=== PATIENT | male | born 1930 | race Caucasian/White ===

== ENCOUNTER 2016-08-16 15:02 | Observation (INO) | payer OTHER ==
[2016-08-16 15:13] VITALS: BMI 25.4
--- NOTE | 2016-08-16 15:26 | PDOC ---
History of Present Illness - General History Source: Patient Exam Limitations: No Limitations - History of Present Illness Initial Comments: 08/16/16 15:34 Patient is a 85 year old male with significant past medical history of HTN, TIA , CVA, hypothyroidism, and dementia who presents to the ED with dizziness, diaphoresis and syncopal 2 episodes. Patient had 2 episodes of unresponsiveness where he slumped over both lasting 5-10 minutes per episode. took BP when it happened yesterday his BP was 90/60. After recovery patient was back to baseline. He denies any weakness, incontinence, visual changes, facial droop. In the ED the patient is hemodynamically stable. He denies any recent fall. <Estefani Pal - Last Filed: 08/16/16 16:26> <Roque Prado - Last Filed: 08/16/16 16:46> - General Chief Complaint: CVA/TIA Stated Complaint: DIZZINESS, SWEATING Time Seen by Provider: 08/16/16 15:24 Past History <Estefani Pal - Last Filed: 08/16/16 16:26> - Past Medical History Cardiac Disorders: Yes CVA: Yes (TIA) Disorders: Yes (GERD) HTN: Yes Seizures: Yes Thyroid Disease: Yes (hypo) - Surgical History Cardiac Surgery: Yes (Cardiac Cath) - Psycho/Social/Smoking Cessation Hx Anxiety: No Suicidal Ideation: No Smoking Status: No Smoking History: Never smoked Have you smoked in the past 12 months: No Number of Cigarettes Smoked Daily: 0 Information on smoking cessation initiated: No Hx Alcohol Use: No Drug/Substance Use Hx: No Substance Use Type: None Hx Substance Use Treatment: No <Roque Prado - Last Filed: 08/16/16 16:46> - Past Medical History Allergies/Adverse Reactions: Allergies Allergy/AdvReac Type Severity Reaction Status Date / Time No Known Allergies Allergy Verified 08/16/16 15:05 Home Medications: Ambulatory Orders Cilostazol 100 mg PO BID 08/01/12 Isosorbide Dinitrate [Isordil] 10 mg PO TID 08/01/12 Metoprolol Succinate [Toprol XL -] 50 mg PO DAILY 08/01/12 Aspirin 81 mg PO DAILY 12/03/12 Nitroglycerin Patch [Nitro-Dur Patch -] 0.4 mg TD PRN PRN 12/03/12 Quetiapine Fumarate [Seroquel -] 25 mg PO HS 11/02/13 Amlodipine Besylate [Norvasc -] 2.5 mg PO BID #0 11/05/13 Levothyroxine [Synthroid -] 50 mcg PO DAILY #0 11/05/13 Atorvastatin Ca [Lipitor] 20 mg PO HS 11/25/15 Multivitamins [Tab-A-Vit -] 1 tab PO DAILY 11/25/15 Pantoprazole Sodium [Protonix] 40 mg PO ASDIR 11/25/15 Review of Systems - Review of Systems Able to Perform ROS?: Yes Comments:: 08/16/16 15:34 General: +diaphoretic Absent: no fever, chills GI: Absent: nausea, vomiting Neuro: Absent: weakness, visual changes, bladder or bowel incontinence <Estefani Pal - Last Filed: 08/16/16 16:26> *Physical Exam - Vital Signs Last Vital Signs Temp Pulse Resp BP Pulse Ox 97.8 F 80 16 158/86 99 08/16/16 15:07 08/16/16 15:07 08/16/16 15:07 08/16/16 15:07 08/16/16 15:21 <Estefani Pal - Last Filed: 08/16/16 16:26> - Vital Signs Last Vital Signs Temp Pulse Resp BP Pulse Ox 97.8 F 80 16 158/86 99 08/16/16 15:07 08/16/16 15:07 08/16/16 15:07 08/16/16 15:07 08/16/16 15:21 - Physical Exam General Appearance: Yes: Nourished, Appropriately Dressed. No: Apparent Distress HEENT: positive: Normal ENT Inspection Neck: positive: Supple. negative: Tender, Carotid bruit Respiratory/Chest: positive: Lungs Clear, Normal Breath Sounds. negative: Respiratory Distress Cardiovascular: positive: Regular Rhythm, Regular Rate Gastrointestinal/Abdominal: positive: Normal Bowel Sounds, Soft. negative: Tender Lymphatic: negative: Adenopathy Musculoskeletal: positive: Normal Inspection. negative: Vertebral Tenderness Extremity: positive: Normal Capillary Refill, Normal Range of Motion. negative : Pedal Edema Integumentary: positive: Normal Color. negative: Rash, Ecchymosis, Bruising Neurologic: positive: supervisor grips II-XII NML intact, Alert, Normal Mood/Affect, Normal Response, Motor Strength 5/5, Confused. negative: Fully Oriented <Roque Prado - Last Filed: 08/16/16 16:46> Heart Score/ECG Review #1 08/16/16 15:35 ECG was reviewed by Dr. Watson Impresion: normal sinus rhythm, left bundle branch block Vent rate: 78 bpm <Estefani Pal - Last Filed: 08/16/16 16:26> ED Treatment Course - LABORATORY CBC & Chemistry Diagram: 08/16/16 15:36 08/16/16 15:36 <Estefani Pal - Last Filed: 08/16/16 16:26> - LABORATORY CBC & Chemistry Diagram: 08/16/16 15:36 08/16/16 15:36 <Roque Prado - Last Filed: 08/16/16 16:46> *DC/Admit/Observation/Transfer - Attestations Scribe Attestion: 08/16/16 15:36 Documentation prepared by ANUPAM Goss, acting as director medical economics for Roque Prado MD/. <Estefani Pal - Last Filed: 08/16/16 16:26> - Discharge Dispostion Admit: Yes <Roque Prado - Last Filed: 08/16/16 16:46> Diagnosis at time of Disposition: Syncope Qualifiers: Syncope type: unspecified Qualified Code(s): R55 - Syncope and collapse - Discharge Dispostion Condition at time of disposition: Stable
[2016-08-16 15:51] LABS: BASOPHIL 0.4 % (0-2.0); EOSINOPHIL 0.7 % (0-4.5); MCH 30.4 pg (25.7-33.7); MCHC 34.2 g/dl (32.0-35.9); NEUTROPHILS 77.5 % (42.8-82.8); PLATELET COUNT 177 K/MM3 (134-434); RDW 15.8 % (11.9-15.9); WHITE BLOOD COUNT 8.1 K/mm3 (4.0-10.0)
[2016-08-16] MEDS ORDERED: ASPIRIN 325 MG ENTERIC COATED TABLET (FP) PO ONE (16:20)
[2016-08-16 16:23] LABS: ALBUMIN 3.4 g/dl (3.4-5.0); BILIRUBIN,TOTAL 0.7 mg/dL (0.2-1.0); CALCIUM 8.6 mg/dL (8.5-10.1); CREATININE 2.1 mg/dL (0.7-1.3); TOT PROT 7.2 g/dl (6.4-8.2)
[2016-08-16] MEDS ORDERED: ASPIRIN 325 MG TABLET ONE (16:30)
[2016-08-16 17:49] LABS: TROPONIN I < 0.02 ng/ml (0.00-0.05)
--- NOTE | 2016-08-16 17:49 | HP ---
CHIEF COMPLAINT: Syncope PCP: Dr. Maldonado HISTORY OF PRESENT ILLNESS: This is an 85 year old female with a history of HTN , TIA, CVA, hypothyroidism, PAD, and dementia brought in to the ED by his for evaluation of syncope. at bedside reports two episodes: one at about 11am yesterday and one at 1030am today. In both instances, the patient was seated at the kitchen table when he slumped over and became unresponsive for about one minute. He was diaphoretic at the time. He returned to baseline following the episodes. notes that his BP during the episode yesterday was 95/64 and today was 134/77. The patient denies chest pain, dizziness, and shortness of breath. He is complaining of some generalized abdominal pain. The patient has had several ED visits in the past for similar episodes with no definitive findings. 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 Smoking: Distant history of smoking Alcohol: Occasional Allergies No Known Allergies Allergy (Verified 08/16/16 15:05) HOME MEDICATIONS: Home Medications Medication Instructions Recorded Cilostazol 100 mg PO BID 08/01/12 Isosorbide Dinitrate [Isordil] 10 mg PO TID 08/01/12 Metoprolol Succinate [Toprol XL -] 50 mg PO DAILY 08/01/12 Aspirin 81 mg PO DAILY 12/03/12 Nitroglycerin Patch [Nitro-Dur 0.4 mg TD PRN PRN 12/03/12 Patch -] Quetiapine Fumarate [Seroquel -] 25 mg PO HS 11/02/13 Amlodipine Besylate [Norvasc -] 2.5 mg PO BID #0 11/05/13 Levothyroxine [Synthroid -] 50 mcg PO DAILY #0 11/05/13 Atorvastatin Ca [Lipitor] 20 mg PO HS 11/25/15 Multivitamins [Tab-A-Vit -] 1 tab PO DAILY 11/25/15 Pantoprazole Sodium [Protonix] 40 mg PO ASDIR 11/25/15 REVIEW OF SYSTEMS CONSTITUTIONAL: Diaphoresis, generalized weakness Absent: fever, chills, malaise, loss of appetite, weight change HEENT: Absent: rhinorrhea, nasal congestion, throat pain, throat swelling, difficulty swallowing, mouth swelling, ear pain, eye pain, visual changes CARDIOVASCULAR: See HPI RESPIRATORY: Absent: cough, shortness of breath, dyspnea with exertion, orthopnea, wheezing, stridor, hemoptysis GASTROINTESTINAL: Generalized abdominal discomfort Absent: nausea, vomiting, diarrhea, constipation, melena, hematochezia GENITOURINARY: Absent: dysuria, frequency, urgency, hesitancy, hematuria, flank pain, genital pain MUSCULOSKELETAL: Absent: myalgia, arthralgia, joint swelling, back pain, neck pain SKIN: Absent: rash, itching, pallor HEMATOLOGIC/IMMUNOLOGIC: Absent: easy bleeding, easy bruising, lymphadenopathy, frequent infections ENDOCRINE: Absent: unexplained weight gain, unexplained weight loss, heat intolerance, cold intolerance NEUROLOGIC: Absent: headache, focal weakness or paresthesias, dizziness, unsteady gait, seizure, mental status changes, bladder or bowel incontinence PSYCHIATRIC: Absent: anxiety, depression, suicidal or homicidal ideation, hallucinations. PHYSICAL EXAMINATION GENERAL: Awake, alert, and fully oriented, in no acute distress. EYES: Pupils equal, round and reactive to light, extraocular movements intact, sclera anicteric, conjunctiva clear. No lid lag. EARS, NOSE, THROAT: Ears normal, nares patent, oropharynx clear without exudates. Moist mucous membranes. NECK: Normal range of motion, supple without lymphadenopathy, JVD, or masses. LUNGS: Breath sounds equal, clear to auscultation bilaterally. No wheezes, and no crackles. No accessory muscle use. HEART: Regular rate and rhythm, normal S1 and S2 without murmur, rub or gallop. ABDOMEN: Soft, nontender even to deep palpation, not distended, normoactive bowel sounds, no guarding, no rebound, no masses. No hepatomegaly or splenomegaly. MUSCULOSKELETAL: Normal range of motion at all joints. No bony deformities or tenderness. No CVA tenderness. UPPER EXTREMITIES: 2+ pulses, warm, well-perfused. No cyanosis. No clubbing. Cap refill <2 seconds. No peripheral edema. LOWER EXTREMITIES: 2+ pulses, warm, well-perfused. No calf tenderness. No peripheral edema. NEUROLOGICAL: Cranial nerves II-XII intact. Normal speech. Normal gait. PSYCHIATRIC: Cooperative. Good eye contact. Appropriate mood and affect. SKIN: Warm, dry, normal turgor, no rashes or lesions noted. ASSESSMENT/PLAN: 85 year old male placed in observation following two syncopal episodes. Problem List - Problem (1) Syncope Assessment/Plan: -Monitor on telemetry -Serial troponins to rule out WI -Echocardiogram, carotid dopplers -Patient's tube sorter consulted Code(s): R55 - SYNCOPE AND COLLAPSE Qualifiers: Syncope type: unspecified Qualified Code(s): R55 - Syncope and collapse (2) Hypothyroidism Assessment/Plan: -Continue Synthroid -Check TSH Code(s): E03.9 - HYPOTHYROIDISM, UNSPECIFIED (3) Hypertension Assessment/Plan: -At goal -Continue home amlodipine, metoprolol Code(s): I10 - ESSENTIAL (PRIMARY) HYPERTENSION (4) PAD (peripheral artery disease) Assessment/Plan: -Continue Pletal Code(s): I73.9 - PERIPHERAL VASCULAR DISEASE, UNSPECIFIED (5) JENNY (acute kidney injury) Assessment/Plan: -Gentle hydration NS 83 mLs/hr -Follow Code(s): N17.9 - ACUTE KIDNEY FAILURE, UNSPECIFIED (6) DVT prophylaxis Assessment/Plan: -Heparin 5000 units sq bid -Early ambulation Code(s): RPE7987 - Visit type - Emergency Visit Emergency Visit: Yes ED Registration Date: 08/16/16 Care time: The patient presented to the Emergency Department on the above date and was hospitalized for further evaluation of their emergent condition. - New Patient This patient is new to me today: Yes Date on this admission: 08/16/16 - Critical Care Critical Care patient: No
[2016-08-16] MEDS ORDERED: SODIUM CHLORIDE 1,000 ML IV SCH (18:00)
[2016-08-16] MEDS ORDERED: PNEUMOC 13-VAL CONJ-DIP CRM/PF 0.5 ML DISP.SYRIN IM ONE (18:39)
[2016-08-16 21:38] LABS: TROPONIN I < 0.02 ng/ml (0.00-0.05)
[2016-08-16] MEDS ORDERED: ISOSORBIDE DINITRATE 10 MG TABLET (FP) PO SCH (22:00)
[2016-08-16] MEDS: CILOSTAZOL 50 MG TABLET (FP) PO SCH (22:25)
[2016-08-16] MEDS: amLODIPine BESYLATE 5 MG TABLET (FP) PO SCH (22:25)
[2016-08-16] MEDS: QUEtiapine FUMARATE 25 MG TABLET (FP) PO SCH (22:25)
[2016-08-16] MEDS: ATORVASTATIN CA 20 MG TABLET (FP) PO SCH (22:25)
[2016-08-16] MEDS: HEPARIN NA (PORCINE) 5,000 UNITS/ML 1ML VIAL SQ SCH (22:26)
[2016-08-17] MEDS: LEVOTHYROXINE NA 50 MCG TABLET (FP) PO SCH (06:19)
[2016-08-17 08:05] LABS: BASOPHIL 0.4 % (0-2.0); EOSINOPHIL 1.3 % (0-4.5); MCH 30.2 pg (25.7-33.7); MCHC 34.1 g/dl (32.0-35.9); MEAN CELL VOLUME 88.5 fl (80-96); MEAN PLT VOLUME 8.9 fl (7.5-11.1); NEUTROPHILS 69.7 % (42.8-82.8); PLATELET COUNT 134 K/MM3 (134-434); RDW 15.5 % (11.9-15.9); WHITE BLOOD COUNT 6.2 K/mm3 (4.0-10.0)
[2016-08-17] MEDS: amLODIPine BESYLATE 5 MG TABLET (FP) PO SCH ×2 (09:11→21:58)
[2016-08-17] MEDS: HEPARIN NA (PORCINE) 5,000 UNITS/ML 1ML VIAL SQ SCH ×2 (09:11→21:58)
[2016-08-17] MEDS: PANTOPRAZOLE 40 MG TABLET (FP) PO SCH (09:12)
[2016-08-17] MEDS: METOPROLOL SUCCINATE 50 MG TAB.SR.24H (FP) PO SCH (09:12)
[2016-08-17] MEDS: ASPIRIN 81 MG CHEWABLE TABLETS PO SCH (09:12)
[2016-08-17 09:19] LABS: ALK PHOS 48 U/L (45-117); ANION GAP 9 (8-16); BILIRUBIN,TOTAL 0.7 mg/dL (0.2-1.0); CALCIUM 8.1 mg/dL (8.5-10.1); CHOLESTEROL 186 mg/dL (50-200); CO2 26 mmol/L (21-32); CREATININE 1.9 mg/dL (0.7-1.3); GLUCOSE,RANDOM 117 mg/dL (74-106); LDL CHOLESTEROL (ONLY SJRH) 116 mg/dL (5-100); MAGNESIUM 2.1 mg/dL (1.8-2.4); SGOT/AST 15 U/L (15-37); SGPT/ALT 16 U/L (12-78); TOT PROT 6.1 g/dl (6.4-8.2); TROPONIN I < 0.02 ng/ml (0.00-0.05)
[2016-08-17] MEDS: MULTIVITAMINS (DAILY MVI) TABLET (FP) PO SCH (10:12)
[2016-08-17] MEDS ORDERED: POTASSIUM CHLORIDE 40 MEQ/30 ML UNIT DOSE CUP PO ONE (10:45)
[2016-08-17] MEDS: CILOSTAZOL 50 MG TABLET (FP) PO SCH ×2 (11:10→21:58)
[2016-08-17 11:19] LABS: FREE T4 1.84 ng/dl (0.76-1.16)
--- NOTE | 2016-08-17 12:31 | CON.CARD ---
Cardiology Consult (text) - Consultation Consultation Note: CC: syncope 85 with h/o HTN, HL, TIA/CVA, PAD, hypothyroidism, NIDDM, and dementia p/w syncope. Per report: two episodes over two days. In both instances, the patient was seated at the kitchen table when he slumped over and became unresponsive for about one minute. He was diaphoretic at the time. He returned to baseline following the episodes. notes that his BP during the episode yesterday was 95/64 and today was 134/77. Patient does not recall events. + orthostatic symptoms. The patient denies chest pain shortness of breath. PMHx/PSHx: per hpi fam hx: denies history of cardiac disease. 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 ros: per hpi Ambulatory Orders Cilostazol 100 mg PO BID 08/01/12 Metoprolol Succinate [Toprol XL -] 25 mg PO TID 08/01/12 Aspirin 81 mg PO DAILY 12/03/12 Nitroglycerin Patch [Nitro-Dur Patch -] 0.4 mg TD PRN PRN 12/03/12 Quetiapine Fumarate [Seroquel -] 25 mg PO HS 11/02/13 Amlodipine Besylate [Norvasc -] 2.5 mg PO BID #0 11/05/13 Levothyroxine [Synthroid -] 50 mcg PO DAILY #0 11/05/13 Atorvastatin Ca [Lipitor] 20 mg PO HS 11/25/15 Multivitamins [Tab-A-Vit -] 1 tab PO DAILY 11/25/15 Pantoprazole Sodium [Protonix] 40 mg PO 1200 11/25/15 Current Medications Amlodipine Besylate (Norvasc -) 2.5 mg PO BID [facility] Last Admin: 08/17/16 09:11 Dose: 2.5 mg Aspirin (Asa -) 81 mg PO DAILY [facility] Last Admin: 08/17/16 09:12 Dose: 81 mg Atorvastatin Calcium (Lipitor -) 20 mg PO HS [facility] Last Admin: 08/16/16 22:25 Dose: 20 mg Cilostazol (Pletal -) 100 mg PO BID [facility] Last Admin: 08/17/16 11:10 Dose: 100 mg Heparin Sodium (Porcine) (Heparin -) 5,000 unit SQ BID [facility] Last Admin: 02/28/17 09:11 Dose: 5,000 unit Levothyroxine Sodium (Synthroid -) 50 mcg PO DAILY@0700 [facility] Last Admin: 08/17/16 06:19 Dose: 50 mcg Metoprolol Succinate (Toprol Xl -) 50 mg PO DAILY [facility] Last Admin: 08/17/16 09:12 Dose: 50 mg Multivitamins/Minerals/Vitamin C (Tab-A-Vit -) 1 tab PO DAILY [facility] Last Admin: 08/17/16 10:12 Dose: 1 tab Pantoprazole Sodium (Protonix -) 40 mg PO DAILY [facility] Last Admin: 08/17/16 09:12 Dose: 40 mg Quetiapine Fumarate (Seroquel -) 25 mg PO HS [facility] Last Admin: 08/16/16 22:25 Dose: 25 mg Vital Signs - 24 hr 08/16/16 08/16/16 08/16/16 15:07 15:21 17:55 Temperature 97.8 F 98.2 F Pulse Rate 80 Pulse Rate [ 97 H Left Radial] Respiratory 16 20 Rate Blood Pressure 158/86 Blood Pressure 113/76 [Left Arm] O2 Sat by Pulse 99 97 Oximetry (%) 08/16/16 08/16/16 08/17/16 18:43 22:00 01:44 Temperature 97.6 F 98.2 F Pulse Rate 78 74 Pulse Rate [ Left Radial] Respiratory 18 16 16 Rate Blood Pressure 126/63 138/72 Blood Pressure [Left Arm] O2 Sat by Pulse 98 Oximetry (%) 08/17/16 08/17/16 08/17/16 02:00 06:00 08:31 Temperature 97.9 F 98.0 F 97.8 F Pulse Rate 85 78 83 Pulse Rate [ Left Radial] Respiratory 18 16 18 Rate Blood Pressure 133/78 128/76 158/77 Blood Pressure [Left Arm] O2 Sat by Pulse Oximetry (%) Intake & Output 08/15/16 08/16/16 08/17/16 08/18/16 07:59 07:59 07:59 07:59 Weight 143 lb 15.989 oz NAD, calm JVD flat, neck supple CTAB, nl effort regular with ectopy. nl s1, s2 no m/r/g + bs soft nt nd ext without e/c/c Diminshed dp/pt No carotid bruits. aaox 1 no jaundice, diaphoresis. CBC, BMP 08/17/16 05:48 08/17/16 05:48 Laboratory Tests 08/16/16 08/16/16 08/16/16 15:30 15:36 20:35 Creatinine 2.1 H D Hemoglobin A1c % Magnesium Total Bilirubin AST ALT Alkaline Phosphatase Creatine Kinase Troponin I < 0.02 < 0.02 Triglycerides Cholesterol Total LDL Cholesterol HDL Cholesterol Free T4 08/17/16 08/17/16 05:48 05:48 Creatinine Hemoglobin A1c % 6.8 H D Magnesium 2.1 Total Bilirubin 0.7 AST 15 D ALT 16 Alkaline Phosphatase 48 Creatine Kinase 43 Troponin I < 0.02 Triglycerides 211 H Cholesterol 186 Total LDL Cholesterol 116 H HDL Cholesterol 51 Free T4 1.84 H EKG: NSR, LBBB. tele: SR, frequent pvc's. CXR: no infiltrates. Head CT: multiple chronic infarcts. 85 with h/o HTN, HL, TIA/CVA, PAD, hypothyroidism, NIDDM, and dementia p/w syncope. syncope - frequent pvc's. con't telemetry monitoring. electrolyte repletion. Echo pending. - thyroid abnormalities per pmd - orthostatic vitals. PT pending. - carotid u/s pending. - no signs or symptoms of infection HTN -reasonable control on current regimen. HL: on statin TIA/CVA - head CT without acute infarct, but multiple chronic infarcts - con't asa, statin PAD - asa, statin, pletol
--- NOTE | 2016-08-17 14:36 | EKG ---
Test Reason : Blood Pressure : / mmHG Vent. Rate : 078 BPM Atrial Rate : 078 BPM P-R Int : 192 ms QRS Dur : 134 ms QT Int : 454 ms P-R-T Axes : 053 035 127 degrees QTc Int : 517 ms NORMAL SINUS RHYTHM LEFT BUNDLE BRANCH BLOCK ABNORMAL ECG WHEN COMPARED WITH ECG OF 25-NOV-2015 18:35, NO SIGNIFICANT CHANGE WAS FOUND Confirmed by HELENE CAMARA MD ([id number]) on 08/17/2016 2:35:55 PM Referred By: Confirmed By:HELENE CAMARA MD
--- NOTE | 2016-08-17 18:19 | PN ---
Physical Exam: SUBJECTIVE: Patient seen and examined. He is oob to side eating lunch no difficulties. He does not remember how or why he fell, but it was in the house. Denies dizziness, palpitations, sob, CP OBJECTIVE: Vital Signs Period Temp Pulse Resp BP Sys/Hanson Pulse Ox Last 24 Hr 97.6 F-98.5 F 74-86 16-20 126-158/63-87 98 PE Neuro: alert, awake, cn 2-12intact Pulm: CTAB CV: s1 s2 rrr no mrg no jvd Abd s nt nd +bs Ext: warm, no le edema Tele: SR w/ PVCs Laboratory Results - last 24 hr 08/16/16 08/17/16 08/17/16 20:35 05:48 05:48 WBC 6.2 RBC 3.83 L Hgb 11.5 L D Hct 33.9 L MCV 88.5 MCHC 34.1 RDW 15.5 Plt Count 134 D MPV 8.9 Neutrophils % 69.7 Lymphocytes % 22.7 D Monocytes % 5.9 Eosinophils % 1.3 D Basophils % 0.4 Sodium 141 Potassium 3.4 L Chloride 106 Carbon Dioxide 26 Anion Gap 9 BUN 40 H Creatinine 1.9 H Creat Clearance w eGFR 33.86 Random Glucose 117 H Hemoglobin A1c % Calcium 8.1 L Magnesium 2.1 Total Bilirubin 0.7 AST 15 D ALT 16 Alkaline Phosphatase 48 Creatine Kinase 44 43 Troponin I < 0.02 < 0.02 Total Protein 6.1 L Albumin 3.0 L Triglycerides 211 H Cholesterol 186 Total LDL Cholesterol 116 H HDL Cholesterol 51 TSH 17.30 H Free T4 1.84 H 08/17/16 08/17/16 05:48 05:48 WBC RBC Hgb Hct MCV MCHC RDW Plt Count MPV Neutrophils % Lymphocytes % Monocytes % Eosinophils % Basophils % Sodium Potassium Chloride Carbon Dioxide Anion Gap BUN Creatinine Creat Clearance w eGFR Random Glucose Hemoglobin A1c % 6.8 H D Calcium Magnesium Total Bilirubin AST ALT Alkaline Phosphatase Creatine Kinase Troponin I Total Protein Albumin Triglycerides Cholesterol Total LDL Cholesterol HDL Cholesterol TSH Free T4 Cancelled Active Medications Generic Name Dose Route Start Last Admin Trade Name Freq PRN Reason Stop Dose Admin Amlodipine Besylate 2.5 mg 08/16/16 22:00 08/17/16 09:11 Norvasc - PO 2.5 mg BID ELIAS Administration Aspirin 81 mg 08/17/16 10:00 08/17/16 09:12 Asa - PO 81 mg DAILY ELIAS Administration Atorvastatin Calcium 20 mg 08/16/16 22:00 08/16/16 22:25 Lipitor - PO 20 mg HS ELIAS Administration Cilostazol 100 mg 08/16/16 22:00 08/17/16 11:10 Pletal - PO 100 mg BID ELIAS Administration Heparin Sodium (Porcine) 5,000 unit 08/16/16 22:00 08/17/16 09:11 Heparin - SQ 5,000 unit BID ELIAS Administration Levothyroxine Sodium 50 mcg 08/17/16 07:00 08/17/16 06:19 Synthroid - PO 50 mcg DAILY@0700 ELIAS Administration Metoprolol Succinate 50 mg 08/17/16 10:00 08/17/16 09:12 Toprol Xl - PO 50 mg DAILY ELIAS Administration Multivitamins/Minerals/Vitamin C 1 tab 08/17/16 10:00 08/17/16 10:12 Tab-A-Vit - PO 1 tab DAILY ELIAS Administration Pantoprazole Sodium 40 mg 08/17/16 10:00 08/17/16 09:12 Protonix - PO 40 mg DAILY ELIAS Administration Quetiapine Fumarate 25 mg 08/16/16 22:00 08/16/16 22:25 Seroquel - PO 25 mg HS ELIAS Administration Assessment: 85 year old female with a history of HTN, TIA, CVA, hypothyroidism , PAD, and dementia admitted following two syncopal episodes. Plan: 1. Syncope - ECHO normal LVSF, no wall motion abnormality, mild mr, tr, RSVP 30-40mmhg - r/o [place] serial trops negative - CD shows 50-69% stenosis, given age and degree of narrowing no intervention at this time 2. Hypothyroidism - TSH elevated - Increase synthroid 75mcg, recheck levels in 2 weeks 3. Hypertension - At goal - Continue home amlodipine, metoprolol 4. HLD - Lipid panel noted - Continue Lipitor 5. PAD - Continue Pletal, ASA 6. JENNY - Improving - Continue gentle hydration NS 83 mLs/hr 7. DVT prophylaxis - Heparin 5000 units sq bid - Early ambulation 8. Borderline DM II - Sugars <200 - Hgba1c 6.8 - Would favor diet modification with PCP follow up 9. HX of tia/CVA - CT w chronic infarcts - Meds above Visit type - Emergency Visit Emergency Visit: Yes ED Registration Date: 08/16/16 Care time: The patient presented to the Emergency Department on the above date and was hospitalized for further evaluation of their emergent condition. - New Patient This patient is new to me today: Yes Date on this admission: 08/17/16 - Critical Care Critical Care patient: No
[2016-08-17] MEDS: QUEtiapine FUMARATE 25 MG TABLET (FP) PO SCH (21:58)
[2016-08-17] MEDS: ATORVASTATIN CA 20 MG TABLET (FP) PO SCH (21:58)
[2016-08-18] MEDS: LEVOTHYROXINE NA 50 MCG TABLET (FP) PO SCH (06:06)
[2016-08-18] MEDS: ASPIRIN 81 MG CHEWABLE TABLETS PO SCH (09:20)
[2016-08-18] MEDS: METOPROLOL SUCCINATE 50 MG TAB.SR.24H (FP) PO SCH (09:20)
[2016-08-18] MEDS: PANTOPRAZOLE 40 MG TABLET (FP) PO SCH (09:20)
[2016-08-18] MEDS: amLODIPine BESYLATE 5 MG TABLET (FP) PO SCH (09:20)
[2016-08-18] MEDS: HEPARIN NA (PORCINE) 5,000 UNITS/ML 1ML VIAL SQ SCH (09:22)
[2016-08-18] MEDS ORDERED: PT OWN MED DRAWER 7, Y5N ONE (09:28)
[2016-08-18] MEDS: MULTIVITAMINS (DAILY MVI) TABLET (FP) PO SCH (09:29)
[2016-08-18] MEDS: CILOSTAZOL 50 MG TABLET (FP) PO SCH (09:29)
--- NOTE | 2016-08-18 10:37 | PN ---
Progress Note (short form) - Note Progress Note: s: no cp sob palps dizzy o: Vital Signs Period Temp Pulse Resp BP Sys/Hanson Pulse Ox Last 24 Hr 97.0 F-98.6 F 78-89 16-20 114-138/59-87 98-99 NAD, calm JVD flat, neck supple CTAB, nl effort rrr nl s1, s2 no m/r/g + bs soft nt nd ext without e/c/c alert awake appropriate no jaundice, diaphoresis. Current Medications Generic Name Dose Route Start Last Admin Trade Name Bianca PRN Reason Stop Dose Admin Amlodipine Besylate 2.5 mg 08/16/16 22:00 08/18/16 09:20 Norvasc - PO 2.5 mg BID ELIAS Administration Aspirin 81 mg 08/17/16 10:00 08/18/16 09:20 Asa - PO 81 mg DAILY ELIAS Administration Atorvastatin Calcium 20 mg 08/16/16 22:00 08/17/16 21:58 Lipitor - PO 20 mg HS ELIAS Administration Cilostazol 100 mg 08/16/16 22:00 08/18/16 09:29 Pletal - PO 100 mg BID ELIAS Administration Heparin Sodium (Porcine) 5,000 unit 08/16/16 22:00 08/18/16 09:22 Heparin - SQ 5,000 unit BID ELIAS Administration Levothyroxine Sodium 50 mcg 08/17/16 07:00 08/18/16 06:06 Synthroid - PO 50 mcg DAILY@0700 ELIAS Administration Metoprolol Succinate 50 mg 08/17/16 10:00 08/18/16 09:20 Toprol Xl - PO 50 mg DAILY ELIAS Administration Multivitamins/Minerals/Vitamin C 1 tab 08/17/16 10:00 08/18/16 09:29 Tab-A-Vit - PO 1 tab DAILY ELIAS Administration Pantoprazole Sodium 40 mg 08/17/16 10:00 08/18/16 09:20 Protonix - PO 40 mg DAILY ELIAS Administration Quetiapine Fumarate 25 mg 08/16/16 22:00 08/17/16 21:58 Seroquel - PO 25 mg HS ELIAS Administration EKG: NSR, LBBB. tele: SR, occ pvc's. CXR: no infiltrates. Head CT: multiple chronic infarcts. echo 07/2016: nl lv/rv, mild mr/tr, rvsp 30-40 carotids 07/2016: 50-69% bl a/p: 85 with h/o HTN, HL, TIA/CVA, PAD, hypothyroidism, NIDDM, and dementia p/ w syncope. syncope - echo, tele, carotids without etiology - no obvious cardiac cause at present - can monitor as outpt and consider event monitor if sxs recur HTN -reasonable control on current regimen. HL: on statin TIA/CVA - head CT without acute infarct, but multiple chronic infarcts - con't asa, statin PAD - asa, statin, pletal cardiac yeager stable for dc
--- NOTE | 2016-08-18 12:43 | DS ---
Physical Exam: SUBJECTIVE: Patient seen and examined. He says he feels better. He is a little slow to OBJECTIVE: Vital Signs Period Temp Pulse Resp BP Sys/Hanson Pulse Ox Last 24 Hr 97.0 F-98.6 F 78-89 16-20 114-138/59-87 98-99 PE Neuro: alert, awake, cn 2-12intact Pulm: CTAB CV: s1 s2 rrr no mrg no jvd Abd s nt nd +bs Ext: warm, no le edema Laboratory Results - last 24 hr 08/17/16 05:48 Free T3 1.7 L HOSPITAL COURSE: Date of Admission:08/16/16 Date of Discharge: 08/18/16 Minutes to complete discharge: 35 Discharge Summary Reason For Visit: SYNCOPE Current Active Problems JENNY (acute kidney injury) (Acute) DVT prophylaxis (Acute) Hypertension (Acute) Hypothyroidism (Acute) PAD (peripheral artery disease) (Acute) Syncope (Acute) Hospital Course: Initial Hospital Course 85 year old female with a history of HTN, TIA, CVA, hypothyroidism, PAD, and dementia brought to the ED by his for evaluation of syncope. reported two episodes: one at about 11am and then another one at 1030am the following day. In both instances, the patient was seated at the kitchen table when he slumped over and became unresponsive for about one minute. He was diaphoretic at the time. He returned to baseline following the episodes. noted his BP during the episode yesterday was 95/64 and today was 134/77. He is complaining of some generalized abdominal pain. The patient has had several ED visits in the past for similar episodes with no definitive findings. Subsequent Hospital Course/Progress Note/Discharge Summary by a/p: Assessment: 85 year old female with a history of HTN, TIA, CVA, hypothyroidism, PAD, and dementia admitted following two syncopal episodes. Plan: 1. Syncope - ECHO normal LVSF, no wall motion abnormality, mild mr, tr, RSVP 30-40mmhg - r/o MA serial trops negative - CD shows 50-69% stenosis, given age and degree of narrowing no intervention at this time 2. Hypothyroidism - TSH elevated - Synthroid 75mcg, recheck levels in 2 weeks with PCP 3. Hypertension - At goal - Continue home amlodipine, metoprolol 4. HLD - Lipid panel noted - Continue Lipitor 5. PAD - Continue Pletal, ASA 6. JENNY - Improved with fluids, encourage PO intake, baseline ~1.4 - Outpt follow up 7. Borderline DM II - Sugars <200 - Hgba1c 6.8 - Would favor diet modification with PCP follow up 8. HX of tia/CVA - CT w chronic infarcts - Meds above 9. Hypokalemia - Replete 40meq x1 today Dispo: - Home with [facility] PCP and cardiology follow up, referrals enclosed Condition: Stable - Instructions Diet, Activity, Other Instructions: Please return to the ED for any new, persistent, or worsening symptoms. Follow up with your PCP in 1 week. Make sure in 3-6 weeks for TSH level rechecks Follow up with cardiology in 1-2 weeks for continued management Resume home medications as directed on discharge list, new prescription for synthroid sent to pharmacy Referrals: Ashley Maldonado MD [Primary Care Provider] - Andre Tim MD [Staff Physician] - Disposition: VNS/HOME HEALTH CARE - Home Medications Comprehensive Discharge Medication List: Ambulatory Orders Cilostazol 100 mg PO BID 08/01/12 Metoprolol Succinate [Toprol XL -] 25 mg PO TID 08/01/12 Aspirin 81 mg PO DAILY 12/03/12 Nitroglycerin Patch [Nitro-Dur Patch -] 0.4 mg TD PRN PRN 12/03/12 Quetiapine Fumarate [Seroquel -] 25 mg PO HS 11/02/13 Amlodipine Besylate [Norvasc -] 2.5 mg PO BID #0 11/05/13 Atorvastatin Ca [Lipitor] 20 mg PO HS 11/25/15 Multivitamins [Multivit ([facility] Formulary)] 1 tab PO DAILY 11/25/15 Pantoprazole Sodium [Protonix] 40 mg PO 1200 11/25/15 Levothyroxine [Synthroid -] 75 mcg PO DAILY #30 tablet 08/18/16 This patient is new to me today: No Emergency Visit: Yes ED Registration Date: 08/16/16 Care time: The patient presented to the Emergency Department on the above date and was hospitalized for further evaluation of their emergent condition. Critical Care patient: No - Discharge Referral Referred to [facility] Med P.C.: No
[2016-08-18] MEDS ORDERED: POTASSIUM CHLORIDE 40 MEQ/30 ML UNIT DOSE CUP PO ONE (13:00)
[2016-08-18 14:44] VITALS: BP 132/79; PULSE 76; TEMP 97.4
== END 2016-08-18 15:14 | disposition home health service (06) ==
LOC: JER 15:02 → JERBED 16:53 → UNDOADMOB 16:53 → INTOOBSV 16:53 → JERBED 17:44 → J4W 18:06 → JERBED 18:06 → J4W 18:06
PROVIDERS: ADMIT Internal Medicine; ATTEND Nurse Practitioner Acute Care
DX: R55 Syncope and collapse (principal); E03.9 Hypothyroidism, unspecified; Z86.73 Personal history of transient ischemic attack (TIA), and cerebral infarction without residual deficits; F03.90 Unspecified dementia, unspecified severity, without behavioral disturbance, psychotic disturbance, mood disturbance, and anxiety; I10 Essential (primary) hypertension; I73.9 Peripheral vascular disease, unspecified; N17.9 Acute kidney failure, unspecified; I44.7 Left bundle-branch block, unspecified; E87.6 Hypokalemia; R73.03 Prediabetes; E78.5 Hyperlipidemia, unspecified
CPT/HCPCS: 36415; 70450-TC; 71010-TC; 80053; 80061; 82550; 83036; 83721; 83735; 84439; 84443; 84481; 84484; 85025; 90670; 93005; 93010; 93306-TC; 93880-TC; 97116-GP; 97161-GP; 99285-25; G0009; G0378; J1644

== ENCOUNTER 2017-02-22 04:26 | Observation (INO) | payer OTHER ==
[2017-02-22 04:42] LABS: BASOPHIL 0.2 % (0-2.0); EOSINOPHIL 1.5 % (0-4.5); MCH 29.4 pg (25.7-33.7); MCHC 33.5 g/dl (32.0-35.9); MEAN CELL VOLUME 87.9 fl (80-96); NEUTROPHILS 63.4 % (42.8-82.8); PLATELET COUNT 140 K/MM3 (134-434); RDW 16.1 % (11.9-15.9); WHITE BLOOD COUNT 6.5 K/mm3 (4.0-10.0)
--- NOTE | 2017-02-22 04:42 | PDOC ---
History of Present Illness - General History Source: Family - History of Present Illness Initial Comments: 02/22/17 05:18 Patient is a 86 year old male with a significant past medical history of HTN, TIA, CVA, hypothyroidism, PAD, dementia, recurring strokes(1 year) who was brought into the ED by EMS s/p stroke. Son reports the patient was found unresponsive at 3:20am this morning. Son reports patient was normal last night at 2 am sleeping on the couch. Son reports patient was given orange juice after being found, which the patient held the glass before losing consciousness once again. states patient is prediabetic and slightly deaf. Denies chest pain, SOB. Denies any out of country travel. Denies any other symptoms. Social History: No smoking Hx. No Drug Hx. No alcohol. Allergies: N/A PMD: Dr. Yadav <Buck Gillespie - Last Filed: 02/22/17 05:17> <Benjamin Abdi - Last Filed: 02/22/17 06:44> - General Chief Complaint: CVA/TIA Stated Complaint: POSSIBLE STROKE Time Seen by Provider: 02/22/17 04:32 Past History <Buck Gillespie - Last Filed: 02/22/17 05:17> - Past Medical History Cardiac Disorders: Yes CVA: Yes (TIA) Disorders: Yes (GERD) HTN: Yes Seizures: Yes Thyroid Disease: Yes (hypo) - Surgical History Cardiac Surgery: Yes (Cardiac Cath) - Psycho/Social/Smoking Cessation Hx Anxiety: No Suicidal Ideation: No Smoking Status: No Smoking History: Never smoked Have you smoked in the past 12 months: No Number of Cigarettes Smoked Daily: 0 Information on smoking cessation initiated: No Hx Alcohol Use: No Drug/Substance Use Hx: No Substance Use Type: None Hx Substance Use Treatment: No <Benjamin Abdi - Last Filed: 02/22/17 06:44> - Past Medical History Allergies/Adverse Reactions: Allergies Allergy/AdvReac Type Severity Reaction Status Date / Time No Known Allergies Allergy Verified 02/22/17 04:32 Home Medications: Ambulatory Orders Cilostazol 100 mg PO BID 08/01/12 Metoprolol Succinate [Toprol XL -] 25 mg PO TID 08/01/12 Aspirin 81 mg PO DAILY 12/03/12 Nitroglycerin Patch [Nitro-Dur Patch -] 0.4 mg TD PRN PRN 12/03/12 Quetiapine Fumarate [Seroquel -] 25 mg PO HS 11/02/13 Amlodipine Besylate [Norvasc -] 2.5 mg PO BID #0 11/05/13 Atorvastatin Ca [Lipitor] 20 mg PO HS 11/25/15 Multivitamins [Multivit ([facility] Formulary)] 1 tab PO DAILY 11/25/15 Pantoprazole Sodium [Protonix] 40 mg PO 1200 11/25/15 Levothyroxine [Synthroid -] 75 mcg PO DAILY #30 tablet 08/18/16 Review of Systems - Review of Systems Able to Perform ROS?: No Comments:: 02/22/17 05:18 Impossible to perform ROS <Buck Gillespie - Last Filed: 02/22/17 05:17> *Physical Exam - Vital Signs Last Vital Signs Temp Pulse Resp BP Pulse Ox 78 14 171/97 98 02/22/17 04:32 02/22/17 04:32 02/22/17 04:32 02/22/17 04:32 - Physical Exam Comments: 02/22/17 05:18 GENERAL: + reactive to loud voice. + Follows commands Awake, alert, and fully oriented, in no acute distress HEAD: No signs of trauma EYES: PERRLA, EOMI: + Tries to open eyes. sclera anicteric, conjunctiva clear ENT: Auricles normal inspection, hearing grossly normal, nares patent, oropharynx clear without exudates. Moist mucosa NECK: Normal ROM, supple, no lymphadenopathy, JVD, or masses LUNGS: Breath sounds equal, clear to auscultation bilaterally. No wheezes, and no crackles HEART: Regular rate and rhythm, normal S1 and S2, no murmurs, rubs or gallops ABDOMEN: Soft, nontender, normoactive bowel sounds. No guarding, no rebound. No masses EXTREMITIES: + Points toes down Normal range of motion, no edema. No clubbing or cyanosis. No cords, erythema, or tenderness NEUROLOGICAL: Cranial nerves II through XII grossly intact. Normal speech, normal gait SKIN: + No evidence of trauma. Warm, Dry, normal turgor, no rashes or lesions noted. <Buck Gillespie - Last Filed: 02/22/17 05:17> - Vital Signs Last Vital Signs Temp Pulse Resp BP Pulse Ox 78 14 171/97 98 02/22/17 04:32 02/22/17 04:32 02/22/17 04:32 02/22/17 04:32 <Benjamin Abdi - Last Filed: 02/22/17 06:44> NIH Stroke Scale - Last Known Well Date/Time & Onset Date Last Known Well: 02/21/17 Time Last Known Well: 22:30 - Initial Evaluation Level of consciousness: Not alert, requires repeat stimulation to attend Ask patient the month and their age: Both incorrect Ask patient to open & close eyes; make fist and let go: Both incorrect Best gaze (horizontal eye movement): Normal Visual field testing: No visual field loss Facial paresis (Show teeth/raise eyebrows/close eyes tight): Normal symmetrical movement Motor Function: Left Arm: Some effort against gravity Motor Function: Right Arm: Some effort against gravity Motor Function: Left Leg: Some effort against gravity Motor Function: Right Leg: Some effort against gravity Sensory(Use pinprick test arms,legs,trunk,face/side to side): Mild to moderate decrease in sensation Best language (Describe picture, name items, read sentences): Mute Dysarthria (read several words): Near unintelligible or unable to speak Extinction and Inattention: No abnormality - Total Score NIH Stroke Scale Score: 20 <Benjamin Abdi - Last Filed: 02/22/17 06:44> Heart Score/ECG Review - ECG Intrepretation Comment:: 02/22/17 05:03 Normal sinus rhythm left bundle branch block Abnormal ECG <Buck Gillespie - Last Filed: 02/22/17 05:17> Critical Care Time/MDM Note - Medical Decision Making Note: 02/22/17 06:41 I do not believe this is a CVA and he is not inside the window for TPA. His family thinks he may have taken some extra medicine because this is the third time this has happened in a similar way where he is slumped over and right next to his medicines. His son also indicates that his dementia is worsening rapidly. <Benjamin Abdi - Last Filed: 02/22/17 06:44> Discharge Disposition <Buck Gillespie - Last Filed: 02/22/17 05:17> - Discharge Dispostion Admit: Yes <Benjamin Abdi - Last Filed: 02/22/17 06:44> - Diagnosis Altered mental status, Hypothyroidism - Discharge Dispostion Condition at time of disposition: Unchanged/Unknown - Referrals Referrals: Alonzo Yadav MD [Primary Care Provider] -
[2017-02-22] MEDS ORDERED: SODIUM CHLORIDE 1,000 ML IV SCH (04:45)
[2017-02-22 04:46] VITALS: BMI 23.1
[2017-02-22 04:55] LABS: INR 1.09 (0.82-1.09)
[2017-02-22 05:07] LABS: ALBUMIN 2.9 g/dl (3.4-5.0); ANION GAP 10 (8-16); BILIRUBIN,TOTAL 0.5 mg/dL (0.2-1.0); CALCIUM 8.1 mg/dL (8.5-10.1); CHOLESTEROL 185 mg/dL (50-200); CO2 24 mmol/L (21-32); CREATININE 2.1 mg/dL (0.7-1.3); GLUCOSE,RANDOM 158 mg/dL (74-106); SGOT/AST 13 U/L (15-37); SGPT/ALT 14 U/L (12-78); TOT PROT 6.2 g/dl (6.4-8.2)
[2017-02-22 05:08] LABS: ALK PHOS 52 U/L (45-117); CPK 42 IU/L (39-308); TROPONIN I 0.02 ng/ml (0.00-0.05)
--- NOTE | 2017-02-22 09:36 | HP ---
Admitting History and Physical - Primary Care Physician PCP: Alonzo Yadav - Admission Chief Complaint: altered ms, syncope History of Present Illness: family found him slumped over kitchen table at night, after being awoken he passed out again. 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 h/o syncopal episodes in past. 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: CVA (2009, 2011), Dementia Cardiovascular: Yes: HTN (labile), Hyperlipdemia, Other (peripheral arterial disease renal artery stenosis s/p Left renal stent) Pulmonary: Yes: COPD Renal/: Yes: Renal Inusuff, Other (prostate cancer s/p XRT) Endocrine: Yes: Hypothyroidism - Past Surgical History Additional Past Surgical History: FREIGHT ENGINEER shunt placement 2016 - Smoking History Smoking history: Never smoked Have you smoked in the past 12 months: No Aproximately how many cigarettes per day: 0 - Alcohol/Substance Use Hx Alcohol Use: No - Social History Usual Living Arrangement: Yes: With Spouse ADL: Family Assistance History of Recent Travel: No Home Medications - Allergies Allergies/Adverse Reactions: Allergies Allergy/AdvReac Type Severity Reaction Status Date / Time No Known Allergies Allergy Verified 02/22/17 04:32 - Home Medications Home Medications: Ambulatory Orders Aspirin [ASA -] 81 mg PO DAILY 02/22/17 Atorvastatin Ca [Lipitor] 20 mg PO HS 02/22/17 Cilostazol 100 mg PO BID 02/22/17 Levothyroxine Sodium [Synthroid] 88 mcg PO DAILY 02/22/17 Metoprolol Tartrate [Lopressor -] 50 mg PO BID 02/22/17 Pantoprazole Sodium [Protonix -] 40 mg PO DAILY 02/22/17 Quetiapine Fumarate [Seroquel -] 25 mg PO DAILY 02/22/17 Rivastigmine [Exelon] 1 each TD DAILY 02/22/17 Family Disease History - Family Disease History Family History: Unable to Obtain Review of Systems Findings/Remarks: denies discomfort or pain Physical Examination Vital Signs: Vital Signs Temperature Pulse Rate 78 02/22/17 04:32 Respiratory Rate 14 02/22/17 04:32 Blood Pressure 171/97 02/22/17 04:32 O2 Sat by Pulse Oximetry (%) 98 02/22/17 04:32 Constitutional: Yes: Well Nourished, No Distress Eyes: Yes: Conjunctiva Clear HENT: Yes: Atraumatic, Normocephalic Neck: Yes: Trachea Midline Cardiovascular: Yes: Regular Rate and Rhythm Respiratory: Yes: CTA Bilaterally Gastrointestinal: Yes: Normal Bowel Sounds, Soft Musculoskeletal: Yes: WNL Extremities: Yes: WNL Edema: No Peripheral Pulses WNL: Yes Integumentary: Yes: WNL (on stretcher, follows simple commands, able to move all 4 extremeties equally, oriented to person, but not place or time, no facial droop, eomi, perrl FREIGHT ENGINEER shunt site is clear) Labs: Laboratory Results - last 24 hr 02/22/17 02/22/17 02/22/17 04:33 04:33 04:33 WBC 6.5 RBC 3.72 L Hgb 10.9 L Hct 32.7 L MCV 87.9 MCH 29.4 MCHC 33.5 RDW 16.1 H Plt Count 140 MPV 9.0 Neutrophils % 63.4 Lymphocytes % 24.1 Monocytes % 10.8 H D Eosinophils % 1.5 Basophils % 0.2 INR 1.09 Sodium 142 Potassium 4.1 D Chloride 108 H Carbon Dioxide 24 Anion Gap 10 BUN 48 H Creatinine 2.1 H Creat Clearance w eGFR 30.09 POC Glucometer Random Glucose 158 H D Calcium 8.1 L Magnesium 2.2 Total Bilirubin 0.5 D AST 13 L ALT 14 Alkaline Phosphatase 52 Creatine Kinase 42 Troponin I 0.02 Total Protein 6.2 L Albumin 2.9 L Triglycerides 189 H Cholesterol 185 Total LDL Cholesterol 105 H HDL Cholesterol 49 Blood Type Antibody Screen 02/22/17 02/22/17 02/22/17 04:33 15:00 15:18 WBC RBC Hgb Hct MCV MCH MCHC RDW Plt Count MPV Neutrophils % Lymphocytes % Monocytes % Eosinophils % Basophils % INR Sodium Potassium Chloride Carbon Dioxide Anion Gap BUN Creatinine Creat Clearance w eGFR POC Glucometer [id number] Random Glucose Calcium Magnesium 2.2 Total Bilirubin AST ALT Alkaline Phosphatase Creatine Kinase 49 Troponin I 0.02 Total Protein Albumin Triglycerides Cholesterol Total LDL Cholesterol HDL Cholesterol Blood Type A POSITIVE Antibody Screen Negative Imaging - Results Chest X-ray: Report Reviewed Cat Scan: Report Reviewed Problem List - Problems (1) Altered mental status Code(s): R41.82 - ALTERED MENTAL STATUS, UNSPECIFIED Qualifiers: Altered mental status type: transient alteration of awareness Qualified Code(s): R40.4 - Transient alteration of awareness (2) Hypothyroidism Code(s): E03.9 - HYPOTHYROIDISM, UNSPECIFIED Qualifiers: Hypothyroidism type: unspecified Qualified Code(s): E03.9 - Hypothyroidism, unspecified (3) Hypertension Code(s): I10 - ESSENTIAL (PRIMARY) HYPERTENSION (4) PAD (peripheral artery disease) Code(s): I73.9 - PERIPHERAL VASCULAR DISEASE, UNSPECIFIED (5) Syncope Code(s): R55 - SYNCOPE AND COLLAPSE Qualifiers: Syncope type: unspecified Qualified Code(s): R55 - Syncope and collapse Assessment/Plan syncope ? admit for observation MRI brain telemetry monitoring no sign of sepsis PT and swallow eval in am called service of she is away for several weeks, covering physician offered to see pt as oupt. requested neuro/cardiac/neurosurgical f/up for now continue antihypertensives iv fluids
[2017-02-22] MEDS ORDERED: amLODIPine BESYLATE 2.5 MG TABLET (FP) PO SCH (10:00)
--- NOTE | 2017-02-22 11:17 | CON.CARD ---
Cardiology Consult (text) - Consultation Consultation Note: CC: syncope 85 with h/o HTN, HL, TIA/CVA, PAD, LBBB, hypothyroidism, NIDDM, hypothyroid, dementia, h/o prior rt V-P shunt (? timing of placement). p/w syncope/ unresponsiveness/? recurrent tia. . Also admitted for episode of unresponsiveness in July. family states patient was sitting and suddenly became unresponsive. did not fall or lose consciousness? history difficult to clarify. no recent change in clinical status. no decreased po intake, f/c/s, n/v/d, cough, congestion, h/a, rashes no sob, cp, le edema, orthopnea, palps per family. history may be somewhat unreliable due to patient's dementia. Since episode, patient slowly improving. Currently patient is not able to communicate with me. PMHx/PSHx: per hpi fam hx: denies history of cardiac disease. 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 ros: per hpi Ambulatory Orders Cilostazol 100 mg PO BID 08/01/12 Metoprolol Succinate [Toprol XL -] 25 mg PO TID 08/01/12 Aspirin 81 mg PO DAILY 12/03/12 Nitroglycerin Patch [Nitro-Dur Patch -] 0.4 mg TD PRN PRN 12/03/12 Quetiapine Fumarate [Seroquel -] 25 mg PO HS 11/02/13 Amlodipine Besylate [Norvasc -] 2.5 mg PO BID #0 11/05/13 Atorvastatin Ca [Lipitor] 20 mg PO HS 11/25/15 Multivitamins [Multivit ([facility] Formulary)] 1 tab PO DAILY 11/25/15 Pantoprazole Sodium [Protonix] 40 mg PO 1200 11/25/15 Levothyroxine [Synthroid -] 75 mcg PO DAILY #30 tablet 08/18/16 Current Medications Amlodipine Besylate (Norvasc -) 2.5 mg PO BID ELIAS Aspirin (Asa -) 81 mg PO DAILY ELIAS Atorvastatin Calcium (Lipitor -) 20 mg PO HS ELIAS Cilostazol (Pletal -) 100 mg PO BID ELIAS Sodium Chloride (Normal Saline -) 1,000 mls @ 42 mls/hr IV ASDIR ELIAS Last Admin: 02/22/17 04:55 Dose: 42 mls/hr Levothyroxine Sodium (Synthroid -) 88 mcg PO DAILY@0700 [facility] Metoprolol Succinate (Toprol Xl -) 50 mg PO BID ELIAS Pantoprazole Sodium (Protonix -) 40 mg PO 1200 [facility] Vital Signs - 24 hr 02/22/17 04:32 Pulse Rate 78 Respiratory 14 Rate Blood Pressure 171/97 O2 Sat by Pulse 98 Oximetry (%) Intake & Output 02/20/17 02/21/17 02/22/17 02/23/17 07:59 07:59 07:59 07:59 Weight 135 lb NAD, calm JVD flat, neck supple CTAB, nl effort regular with ectopy. nl s1, s2 no m/r/g + bs soft nt nd ext without e/c/c Diminshed dp/pt No carotid bruits. aaox 1 no jaundice, diaphoresis. CBC, BMP 02/22/17 04:33 02/22/17 04:33 Selected Entries 02/22/17 02/22/17 04:32 06:09 Blood Pressure 171/97 Oxygen Delivery Non-Rebreather Method Mask Laboratory Tests 08/17/16 08/17/16 02/22/17 05:48 05:48 04:33 Hgb 11.5 L D INR 1.09 Creatinine 1.9 H Total Bilirubin AST ALT Alkaline Phosphatase Creatine Kinase Troponin I Albumin Triglycerides Cholesterol Total LDL Cholesterol HDL Cholesterol TSH 17.30 H 02/22/17 04:33 Hgb INR Creatinine Total Bilirubin 0.5 D AST 13 L ALT 14 Alkaline Phosphatase 52 Creatine Kinase 42 Troponin I 0.02 Albumin 2.9 L Triglycerides 189 H Cholesterol 185 Total LDL Cholesterol 105 H HDL Cholesterol 49 TSH tele: srpvc's. ekg: nsr. lbbb. Head CT: chronic ischemic changes of lt b. ganglia with compensatory dilation of left lateral ventricle. prior infarct of rt frontal solano radiata. rt V-P shunt. no hydrocephalus. no acute bleed or infarct. echo 07/2016: nl lv/rv, mild mr/tr, rvsp 30-40 carotids 07/2016: 50-69% bl a/p: 85 with h/o HTN, HL, TIA/CVA, PAD, LBBB, hypothyroidism, NIDDM, hypothyroid, dementia, h/o prior rt V-P shunt (? timing of placement). p/w syncope/unresponsiveness/? recurrent tia. syncope vs. cerebrovascular event - telemetry monitoring. consider repeat echo. - ce's neg x 1. con't ambreen. - tsh. - orthostatic vitals when possible. - neuro eval per pmd. TIA/CVA - head CT with chronic changes, but no acute infarct, - con't asa, statin HTN - possible hypotension contribution to prior episodes of decreased responsiveness. HTN here. con't amlodipine, metoprolol and monitor. HL: on statin PAD with claudication. - asa, statin, pletal.
[2017-02-22 12:34] LABS: MAGNESIUM 2.2 mg/dL (1.8-2.4)
[2017-02-22] MEDS: METOPROLOL SUCCINATE 50 MG TAB.SR.24H (FP) PO SCH ×2 (14:08→22:22)
[2017-02-22] MEDS: CILOSTAZOL 50 MG TABLET (FP) PO SCH ×2 (14:08→22:22)
[2017-02-22] MEDS: ASPIRIN 81 MG CHEWABLE TABLETS PO SCH (14:08)
[2017-02-22] MEDS: PANTOPRAZOLE 40 MG TABLET (FP) PO SCH (14:08)
[2017-02-22] MEDS: LEVOTHYROXINE NA 88 MCG TABLET (FP) PO SCH (14:08)
[2017-02-22 15:26] LABS: MAGNESIUM 2.2 mg/dL (1.8-2.4)
[2017-02-22 15:29] LABS: TROPONIN I 0.02 ng/ml (0.00-0.05)
--- NOTE | 2017-02-22 17:29 | EKG ---
Test Reason : Blood Pressure : / mmHG Vent. Rate : 075 BPM Atrial Rate : 075 BPM P-R Int : 196 ms QRS Dur : 132 ms QT Int : 470 ms P-R-T Axes : 039 010 151 degrees QTc Int : 524 ms NORMAL SINUS RHYTHM LEFT BUNDLE BRANCH BLOCK ABNORMAL ECG WHEN COMPARED WITH ECG OF 16-AUG-2016 15:29, NO SIGNIFICANT CHANGE WAS FOUND REPEAT EKG IF CLINICALLY INDICATED Confirmed by JULIETTE FITZPATRICK MD ([id number]) on 02/22/2017 5:29:14 PM Referred By: Confirmed By:JULIETTE FITZPATRICK MD
[2017-02-22] MEDS ORDERED: SODIUM CHLORIDE 0.45% 1,000 ML IV SCH (17:45)
--- NOTE | 2017-02-22 19:01 | CON.NEURO ---
Consult Consult Specialty:: NEUROLOGY-[facility] Reason for Consultation:: Syncope - History of Present Illness Chief Complaint: s/p syncope History of Present Illness: As per patients he had, at 330am last night suden sweating and slumped down , was unresponsive for 15 minutes, began waking up without confusion by the time EMS arrived,family found him slumped over kitchen table. He is s/p [place] shunt placement by dr. 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 h/o syncopal episodes in past, x 3 last one in 08/06. lives with his , has been in his usual state of health, ambulant at home , improved gait and less confusion since placement of shunt. Pt reports he feels well, denies neurologic symptoms. 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), Dementia Cardio/Vascular: Yes: HTN (labile), Hyperlipdemia, Other (peripheral arterial disease renal artery stenosis s/p Left renal stent) Pulmonary: Yes: COPD Renal/: Yes: Renal Inusuff, Other (prostate cancer s/p XRT) Endocrine: Yes: Hypothyroidism - Alcohol/Substance Use Hx Alcohol Use: No - Smoking History Smoking history: Never smoked Have you smoked in the past 12 months: No Aproximately how many cigarettes per day: 0 If you are a former smoker, when did you quit?: 1989 - Social History ADL: Family Assistance History of Recent Travel: No Home Medications - Allergies Allergies/Adverse Reactions: Allergies Allergy/AdvReac Type Severity Reaction Status Date / Time No Known Allergies Allergy Verified 02/22/17 04:32 - Home Medications Home Medications: Ambulatory Orders Aspirin [ASA -] 81 mg PO DAILY 02/22/17 Atorvastatin Ca [Lipitor] 20 mg PO HS 02/22/17 Cilostazol 100 mg PO BID 02/22/17 Levothyroxine Sodium [Synthroid] 88 mcg PO DAILY 02/22/17 Metoprolol Tartrate [Lopressor -] 50 mg PO BID 02/22/17 Pantoprazole Sodium [Protonix -] 40 mg PO DAILY 02/22/17 Quetiapine Fumarate [Seroquel -] 25 mg PO DAILY 02/22/17 Rivastigmine [Exelon] 1 each TD DAILY 02/22/17 Physical Exam-Neuro Vital Signs: Vital Signs Temperature 97.5 F L 09/05/17 17:02 Pulse Rate 78 02/22/17 17:02 Respiratory Rate 20 02/22/17 17:02 Blood Pressure 187/86 02/22/17 17:02 O2 Sat by Pulse Oximetry (%) 97 02/22/17 16:00 Labs: INR, PTT INR 1.09 (0.82-1.09) 02/22/17 04:33 - Neuro Exam Level Of Consciousness: Yes: Alert, Oriented to Person Eyes: Yes: HOLDEN Speech: Garbled Dominant Hand: Right Mini Mental Exam: Awake, alert, follows 2 step commands, disoriented Cranial Nerves II-XII Intact: No (old right diminished nasolabial fold) Gag: Present DTR's: 0 Left Brachioradialis, 0 Right Brachioradialis, 0 Left Achilles, 0 Right Achilles, 1+ Left Bicep, 1+ Right Bicep, 1+ Left Tricep, 1+ Right Tricep Response to light touch: Normal (withdraws all 4 ext. to pain) Motor Strength: 4/5: Left Leg, Right Leg, 5/5: Left Arm, Right Arm Gait: Deferred Imaging - Results Cat Scan: Report Reviewed (Head CT: chronic ischemic changes of lt b. ganglia with compensatory dilation of left lateral ventricle. prior infarct of rt frontal solano radiata. rt V-P shunt. no hydrocephalus. no acute bleed or infarct.) Assessment/Plan Pt. with likely syncope-he has a past hx and this current event appears to have been syncopal?? dehydration but will r/o new infarct. I doubt increase in CSF pressure causing syncope and seizure. Plan:MRI brain, pt. being monitored, cardiac. Will d/w neurosurgery Dr. Blancas.
[2017-02-22 20:40] LABS: URINE APPEARANCE CLEAR; URINE BILIRUBIN NEGATIVE (NEGATIVE); URINE BLOOD NEGATIVE (NEGATIVE); URINE COLOR STRAW; URINE GLUCOSE (UA) NEGATIVE (NEGATIVE); URINE KETONE NEGATIVE (NEGATIVE); URINE LEUK ESTERASE NEGATIVE (NEGATIVE); URINE NITRITE NEGATIVE (NEGATIVE); URINE PROTEIN NEGATIVE (NEGATIVE); URINE UROBILINOGEN NEGATIVE mg/dL (0.2-1.0)
[2017-02-22] MEDS: amLODIPine BESYLATE 2.5 MG TABLET (FP) PO SCH (22:23)
[2017-02-22] MEDS: ATORVASTATIN CA 20 MG TABLET (FP) PO SCH (22:23)
[2017-02-23] MEDS: LEVOTHYROXINE NA 88 MCG TABLET (FP) PO SCH (06:45)
[2017-02-23 07:19] LABS: BASOPHIL 0.4 % (0-2.0); EOSINOPHIL 1.3 % (0-4.5); MCH 28.9 pg (25.7-33.7); MCHC 32.9 g/dl (32.0-35.9); MEAN CELL VOLUME 87.9 fl (80-96); NEUTROPHILS 67.4 % (42.8-82.8); PLATELET COUNT 136 K/MM3 (134-434); RDW 15.8 % (11.9-15.9); WHITE BLOOD COUNT 5.5 K/mm3 (4.0-10.0)
--- NOTE | 2017-02-23 08:23 | PN ---
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, h/o syncope at least 3x in past last one on July CAD HTN PVD Hypothyroidism NPH-vp project shunt Dementia now admitted for altered MS and syncope yesterday not septic telemetry uneventful so far other than PVCs awaiting MRi brain consults appreciated PT/swallow eval pending check room air O2 sats Problem List - Problems (1) Altered mental status Code(s): R41.82 - ALTERED MENTAL STATUS, UNSPECIFIED Qualifiers: Altered mental status type: transient alteration of awareness Qualified Code(s): R40.4 - Transient alteration of awareness (2) Hypothyroidism Code(s): E03.9 - HYPOTHYROIDISM, UNSPECIFIED Qualifiers: Hypothyroidism type: unspecified Qualified Code(s): E03.9 - Hypothyroidism, unspecified (3) Hypertension Code(s): I10 - ESSENTIAL (PRIMARY) HYPERTENSION (4) PAD (peripheral artery disease) Code(s): I73.9 - PERIPHERAL VASCULAR DISEASE, UNSPECIFIED (5) Syncope Code(s): R55 - SYNCOPE AND COLLAPSE Qualifiers: Syncope type: unspecified Qualified Code(s): R55 - Syncope and collapse
[2017-02-23] MEDS: ASPIRIN 81 MG CHEWABLE TABLETS PO SCH (09:51)
[2017-02-23] MEDS: METOPROLOL SUCCINATE 50 MG TAB.SR.24H (FP) PO SCH ×2 (09:51→21:42)
[2017-02-23] MEDS: CILOSTAZOL 50 MG TABLET (FP) PO SCH ×3 (09:52→21:43)
[2017-02-23] MEDS: amLODIPine BESYLATE 2.5 MG TABLET (FP) PO SCH ×2 (09:52→21:42)
--- NOTE | 2017-02-23 10:42 | CONSULT ---
Admitting History and Physical - Primary Care Physician PCP: Sadaf Yadav - Admission History of Present Illness: per emr: History of Present Illness: family found him slumped over kitchen table at night, after being awoken he passed out again. recent vp respiratory shunt placement by dr. 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 h/o syncopal episodes in past. lives with his , has been in his usual state of health, even noted improved gait and less confusion since surgery failed swallow screening twice yesterday in er Pt's reports that pt was non verbal in the ER and lethargic,with eyes closed. He coughed on trials of liquid. Improving but still less verbal and more confused than baseline. 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: CVA (2009, 2011), Dementia Cardiovascular: Yes: HTN (labile), Hyperlipdemia, Other (peripheral arterial disease renal artery stenosis s/p Left renal stent) Pulmonary: Yes: COPD Renal/: Yes: Renal Inusuff, Other (prostate cancer s/p XRT) Endocrine: Yes: Hypothyroidism - Past Surgical History Additional Past Surgical History: LOAD TEST MECHANIC shunt placement 2016 - Smoking History Smoking history: Never smoked Have you smoked in the past 12 months: No Aproximately how many cigarettes per day: 0 If you are a former smoker, when did you quit?: 1989 - Alcohol/Substance Use Hx Alcohol Use: No - Social History ADL: Family Assistance History of Recent Travel: No History - Admission Reason For Visit: AMS,HYPOTHROIDISM - Diagnostics X-ray: Report Reviewed CT Scan: Report Reviewed MRI: Pending - General Mental Status: Awake and Alert, Able to Follow Commands, Forgetful, Combative Attention: Intact Ability to Follow Directions: Good Head/Neck Control: WFL - Hearing Hearing: Impaired Hearing Aide: No With Patient: No Speech Evaluation - Communication Primary Language: LIBYAN Communication: Yes: Simple Responses (Verbal but significant anomia in propositional speech tasks. Able to name upon confrontation.) - Speech Production Able to Make Needs Known: Yes: Moderately Impaired (anomia) Intelligibility: Yes: WNL - Speech Characteristics Voice Loudness: Normal Voice Pitch: Yes: Normal Voice Phonatory-based Quality: Yes: Normal Speech Pattern: Impaired Nasal Resonance: Normal Articulation: Yes: Precise - Language/Auditory Comprehension Follows: Yes: 1 Stage Simple Commands Observation: Able to respond to yes/no queries: Yes, Yes/No Confusion: No, Comprehends Conversational Speech: Yes, Benefits from Repetiton: Yes, Benefits from Increased Volume of Speech: Yes - Language/Verbal Expression Able to Respond to Simple Queries: Yes: Moderately Impaired Able to Communicate Wants and Needs: Yes: Moderately Impaired - Swallow Evaluation/Bedside Assessment Current Nutritional Intake: Dysphagia Pureed, Other (no liquids) Oral Secretions: Yes: WFL Dentition: Yes: Dental Appliance Upper, Dental Appliance Lower Facial Symmetry at Rest: Symmetrical Facial Symmetry on Retraction: Symmetrical Facial Movement: Controlled Sensation: Normal Against Resistance Opening: Normal Against Resistance Closing: Normal Pucker Lips: Normal Smile: Normal Lingual Movement: Normal, Symmetric Lingual Speed of Movement: Normal Lingual Movement Strgth Against Opposition: Normal Lingual Movement Characteristics: Normal Velopharyngeal Movement: Normal Laryngeal Elevation: WFL Laryngeal Movement: Labored,delay initiation, Reduced Velocity Bolus Size: WFL Labial Seal: WFL Chewing: WFL Oral Prep Time: WFL A-P Transit: WFL Pocketing: None Timing of Swallow: Delayed Coughing/Throat Clear: No Change in Voice: No Recommendations - Speech Evaluation, Impression/Plan Impression: Anomia with disorientation and confusion with poor ability to recall after 1 minute without distraction. Denies age of 86 or being in hospital. Speech is precise. Cooperative and attetntive. Swallowing delayed but fairly strong. Functional.. 3 o water test (-). Good mastication. - Dysphagia Impressions/Plan Dysphagia Impressions: Mild Impairment, Risk of Aspiration *Silent aspiration: cannot be R/O at bedside Dysphagia Treatment Plan: Chin Tuck/Down, Trial Feedings, Facilitative Feeding, Safe Rate, OOB for meals, OOB for 1 h. after meals Recommendations: Modified Barium Swallow (if cough,congestion.) - Recommendations Diet Consistency: Regular (soft, easy to chew), Other (assist with meals.) Liquids: Thin Liquids
--- NOTE | 2017-02-23 11:17 | PN ---
Progress Note (short form) - Note Progress Note: s per patients he had, at 330am last night suden sweating and slumped down , was unresponsive for 15 minutes, began waking up without confusion by the time EMS arrived,family found him slumped over kitchen table. He is s/p vp communications shunt placement by dr. 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 h/o syncopal episodes in past, x 3 last one in 08/06. lives with his , has been in his usual state of health, ambulant at home , improved gait and less confusion since placement of shunt. Pt reports he feels well, denies neurologic symptoms. 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), Dementia Cardio/Vascular: Yes: HTN (labile), Hyperlipdemia, Other (peripheral arterial disease renal artery stenosis s/p Left renal stent) Pulmonary: Yes: COPD Renal/: Yes: Renal Inusuff, Other (prostate cancer s/p XRT) Endocrine: Yes: Hypothyroidism - Alcohol/Substance Use Hx Alcohol Use: No - Smoking History Smoking history: Never smoked Have you smoked in the past 12 months: No Aproximately how many cigarettes per day: 0 If you are a former smoker, when did you quit?: 1989 - Social History ADL: Family Assistance History of Recent Travel: No Home Medications - Allergies Allergies/Adverse Reactions: Allergies Allergy/AdvReac Type Severity Reaction Status Date / Time No Known Allergies Allergy Verified 02/22/17 04:32 - Home Medications Home Medications: Ambulatory Orders Aspirin [ASA -] 81 mg PO DAILY 02/22/17 Atorvastatin Ca [Lipitor] 20 mg PO HS 02/22/17 Cilostazol 100 mg PO BID 02/22/17 Levothyroxine Sodium [Synthroid] 88 mcg PO DAILY 02/22/17 Metoprolol Tartrate [Lopressor -] 50 mg PO BID 02/22/17 Pantoprazole Sodium [Protonix -] 40 mg PO DAILY 02/22/17 Quetiapine Fumarate [Seroquel -] 25 mg PO DAILY 02/22/17 Rivastigmine [Exelon] 1 each TD DAILY 02/22/17 Physical Exam-Neuro Vital Signs: Vital Signs Temperature 98.2 F 02/23/17 05:27 Pulse Rate 80 09/06/17 09:48 Respiratory Rate 20 02/23/17 09:00 Blood Pressure 124/66 02/23/17 05:27 O2 Sat by Pulse Oximetry (%) 97 02/23/17 09:48 Labs: CBCD WBC 5.5 K/mm3 (4.0-10.0) 02/23/17 06:00 RBC 3.90 M/mm3 (4.00-5.60) L 02/23/17 06:00 Hgb 11.3 GM/dL (11.7-16.9) L 02/23/17 06:00 Hct 34.2 % (35.4-49) L 02/23/17 06:00 MCV 87.9 fl (80-96) 02/23/17 06:00 MCHC 32.9 g/dl (32.0-35.9) 02/23/17 06:00 RDW 15.8 % (11.9-15.9) 02/23/17 06:00 Plt Count 136 K/MM3 (134-434) 02/23/17 06:00 MPV 9.0 fl (7.5-11.1) 02/23/17 06:00 CMP Sodium 142 mmol/L (136-145) 02/22/17 04:33 Potassium 4.1 mmol/L (3.5-5.1) D 02/22/17 04:33 Chloride 108 mmol/L (98-107) H 02/22/17 04:33 Carbon Dioxide 24 mmol/L (21-32) 02/22/17 04:33 Anion Gap 10 (8-16) 02/22/17 04:33 BUN 48 mg/dL (7-18) H 02/22/17 04:33 Creatinine 2.1 mg/dL (0.7-1.3) H 02/22/17 04:33 Creat Clearance w eGFR 30.09 (>60) 02/22/17 04:33 Calcium 8.1 mg/dL (8.5-10.1) L 02/22/17 04:33 Total Bilirubin 0.5 mg/dL (0.2-1.0) D 02/22/17 04:33 AST 13 U/L (15-37) L 02/22/17 04:33 ALT 14 U/L (12-78) 02/22/17 04:33 Alkaline Phosphatase 52 U/L (45-117) 02/22/17 04:33 Total Protein 6.2 g/dl (6.4-8.2) L 02/22/17 04:33 Albumin 2.9 g/dl (3.4-5.0) L 02/22/17 04:33 - Neuro Exam Level Of Consciousness: Yes: Alert, Oriented to Person Eyes: Yes: HOLDEN Speech: Garbled Dominant Hand: Right Mini Mental Exam: Awake, alert, follows 2 step commands, disoriented Cranial Nerves II-XII Intact: No (old right diminished nasolabial fold) Gag: Present DTR's: 0 Left Brachioradialis, 0 Right Brachioradialis, 0 Left Achilles, 0 Right Achilles, 1+ Left Bicep, 1+ Right Bicep, 1+ Left Tricep, 1+ Right Tricep Response to light touch: Normal (withdraws all 4 ext. to pain) Motor Strength: 4/5: Left Leg, Right Leg, 5/5: Left Arm, Right Arm Gait: Deferred Imaging - Results Cat Scan: Report Reviewed (Head CT: chronic ischemic changes of lt b. ganglia with compensatory dilation of left lateral ventricle. prior infarct of rt frontal solano radiata. rt V-P shunt. no hydrocephalus. no acute bleed or infarct.) Assessment/Plan Pt. with likely syncope-he has a past hx and this current event appears to have been syncopal?? dehydration but will r/o new infarct. FU MRI check EEG r/o seizure baseline dementia /NPH cardiology FU Dr Mcdonnell
--- NOTE | 2017-02-23 11:27 | PN ---
Progress Note (short form) - Note Progress Note: s: no cp sob palps dizzy o: Vital Signs Period Temp Pulse Resp BP Sys/Hanson Pulse Ox Last 24 Hr 97.5 F-98.2 F 76-84 18-20 124-197/66-106 97-98 NAD, calm JVD flat, neck supple CTAB, nl effort regular. nl s1, s2 no m/r/g + bs soft nt nd ext without e/c/c aaox 1 no jaundice, diaphoresis. Current Medications Generic Name Dose Route Start Last Admin Trade Name Freq PRN Reason Stop Dose Admin Amlodipine Besylate 5 mg 02/22/17 17:42 02/23/17 09:52 Norvasc - PO 5 mg BID ELIAS Administration Aspirin 81 mg 02/22/17 10:00 02/23/17 09:51 Asa - PO 81 mg DAILY ELIAS Administration Atorvastatin Calcium 20 mg 02/22/17 22:00 02/22/17 22:23 Lipitor - PO 20 mg HS ELIAS Administration Cilostazol 100 mg 02/22/17 10:00 02/23/17 09:54 Pletal - PO 100 mg BID ELIAS Administration Sodium Chloride 1,000 mls @ 50 mls/hr 02/22/17 17:45 02/22/17 21:26 1/2 Normal Saline IV 02/23/17 17:43 Not Given ASDIR ELIAS Levothyroxine Sodium 88 mcg 02/22/17 10:00 02/23/17 06:45 Synthroid - PO 88 mcg DAILY@0700 ELIAS Administration Metoprolol Succinate 50 mg 02/22/17 10:00 02/23/17 09:51 Toprol Xl - PO 50 mg BID ELIAS Administration Pantoprazole Sodium 40 mg 02/22/17 12:00 02/22/17 14:08 Protonix - PO 40 mg 1200 ELIAS Administration CBC, BMP 02/23/17 06:00 tele: sr, pvc's, artifact ekg: nsr. lbbb. Head CT: chronic ischemic changes of lt b. ganglia with compensatory dilation of left lateral ventricle. prior infarct of rt frontal solano radiata. rt V-P shunt. no hydrocephalus. no acute bleed or infarct. echo 07/2016: nl lv/rv, mild mr/tr, rvsp 30-40 carotids 07/2016: 50-69% bl a/p: 86 with h/o HTN, HL, TIA/CVA, PAD, LBBB, hypothyroidism, NIDDM, hypothyroid, dementia, h/o prior rt V-P shunt (? timing of placement). p/w syncope/unresponsiveness/? recurrent tia. syncope vs. cerebrovascular event - cont telemetry monitoring, benign so far - recent echo, carotids w/o etiology - ce's neg x 2. - orthostatic vitals when possible. - neuro eval TIA/CVA - head CT with chronic changes, but no acute infarct, - con't asa, statin - plans per neuro HTN - possible hypotension contribution to prior episodes of decreased responsiveness. HTN here. con't amlodipine, metoprolol and monitor. If remains high may need to add additional agent such has hydralazine 10 bid to start. HLD: on statin PAD with claudication. - asa, statin, pletal.
[2017-02-23] MEDS: PANTOPRAZOLE 40 MG TABLET (FP) PO SCH (12:00)
[2017-02-23 13:17] LABS: ALBUMIN 3.2 g/dl (3.4-5.0); ALK PHOS 51 U/L (45-117); ANION GAP 12 (8-16); BILIRUBIN,TOTAL 0.9 mg/dL (0.2-1.0); CALCIUM 8.7 mg/dL (8.5-10.1); CO2 23 mmol/L (21-32); CREATININE 1.5 mg/dL (0.7-1.3); GLUCOSE,RANDOM 120 mg/dL (74-106); SGOT/AST 12 U/L (15-37); SGPT/ALT 12 U/L (12-78); TOT PROT 6.3 g/dl (6.4-8.2)
--- NOTE | 2017-02-23 14:25 | CONSULT ---
Consult - text type - Consultation Consultation Note: Asked to see this 86 year old male with several recent episodes of altered mental status and diaphoresis. He has also been diagnosed with Normal Pressure Hydrocephalus and underwent Right frontal LENS POLISHER HAND shunt insertion 3 weeks ago. The patient has had some improvement in his gait and cognition since this shunt was placed. I spoke with patient, spouse and daughter. I am informed that Dr. Man (Neurosurgeon who placed the shunt) was already planning to adjust the pressure setting next week. I agree with Drs. Pagan and Kecia that these episodes do not seem to be typical of Hydrocephalus and while they may be attributable to CVA or EEG, cardiac etiologies remain more likely. I understand that a preliminary cardiac evaluation was reported to be negative and also agree that dehydration/ hypoglycemia or other physiologic stresses could easily contribute to his mental status changes in this medically frail patient. His shunt incisions have healed well and the reservoir pumps and refills well. CT does not appear to show any change in ventricular size from a recent scan before the shunt was placed. Stable pattern of old infarcts noted. Plan: Agree with EEG and MRI to evaluate cerebrovascular disease and possibility of epilepsy. Agree with completion of cardiac and medical workup. It is possible that hydrocephalus is contributing to this complex picture. Since he has a programmable shunt, adjustments could be made without surgery to address this possibility. The shunt may have drifted to another pressure setting and will need to be adjusted after the MRI. Notes from Dr. Man are not available, however, the daughter will try to obtain information on both the shunt type and correct pressure setting. My review of the CT seeing eye dog trainer images suggests that this is a Codman Hakim valve which I do not have access to the programming device. (I have the device to evaluate and change Medtronic Strata Valves). If this cobol programmer cannot be obtained, MRI might need to be deferred or arrangements made for the patient to see Dr. Man to reset the valve. Checking the pressure now to determine whether there has been a drift would be useful information to have as well.
[2017-02-23] MEDS ORDERED: PT OWN MED DRAWER 7, Y5N ONE (21:33)
[2017-02-23] MEDS: ATORVASTATIN CA 20 MG TABLET (FP) PO SCH (21:42)
[2017-02-24] MEDS: LEVOTHYROXINE NA 88 MCG TABLET (FP) PO SCH (06:32)
[2017-02-24] MEDS ORDERED: PT OWN MED DRAWER 7, Y5N ONE ×2 (06:45→09:41)
[2017-02-24 07:55] LABS: THYROID STIMULATING HORMONE 2.96 uIU/ml (0.358-3.74)
--- NOTE | 2017-02-24 09:11 | PN ---
Progress Note (short form) - Note Progress Note: per patients he had, at 330am last night suden sweating and slumped down, was unresponsive for 15 minutes, began waking up without confusion by the time EMS arrived,family found him slumped over kitchen table. He is s/p vp analysis shunt placement by dr. 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 h/o syncopal episodes in past, x 3 last one in 08/06. lives with his , has been in his usual state of health, ambulant at home , improved gait and less confusion since placement of shunt. Pt reports he feels well, denies neurologic symptoms. 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 (2009, 2010), Dementia Cardio/Vascular: Yes: HTN (labile), Hyperlipdemia, Other (peripheral arterial disease renal artery stenosis s/p Left renal stent) Pulmonary: Yes: COPD Renal/: Yes: Renal Inusuff, Other (prostate cancer s/p XRT) Endocrine: Yes: Hypothyroidism - Alcohol/Substance Use Hx Alcohol Use: No - Smoking History Smoking history: Never smoked Have you smoked in the past 12 months: No Aproximately how many cigarettes per day: 0 If you are a former smoker, when did you quit?: 1989 - Social History ADL: Family Assistance History of Recent Travel: No Home Medications - Allergies Allergies/Adverse Reactions: Allergies Allergy/AdvReac Type Severity Reaction Status Date / Time No Known Allergies Allergy Verified 02/22/17 04:32 - Home Medications Home Medications: Ambulatory Orders Aspirin [ASA -] 81 mg PO DAILY 02/22/17 Atorvastatin Ca [Lipitor] 20 mg PO HS 02/22/17 Cilostazol 100 mg PO BID 02/22/17 Levothyroxine Sodium [Synthroid] 88 mcg PO DAILY 02/22/17 Metoprolol Tartrate [Lopressor -] 50 mg PO BID 02/22/17 Pantoprazole Sodium [Protonix -] 40 mg PO DAILY 02/22/17 Quetiapine Fumarate [Seroquel -] 25 mg PO DAILY 02/22/17 Rivastigmine [Exelon] 1 each TD DAILY 02/22/17 Physical Exam-Neuro Vital Signs: Vital Signs Temperature 97.6 F 02/24/17 05:45 Pulse Rate 83 09/07/17 05:45 Respiratory Rate 20 02/24/17 05:45 Blood Pressure 155/93 02/24/17 05:45 O2 Sat by Pulse Oximetry (%) 96 02/23/17 21:00 Labs: CBCD WBC 5.5 K/mm3 (4.0-10.0) 02/23/17 06:00 RBC 3.90 M/mm3 (4.00-5.60) L 02/23/17 06:00 Hgb 11.3 GM/dL (11.7-16.9) L 02/23/17 06:00 Hct 34.2 % (35.4-49) L 02/23/17 06:00 MCV 87.9 fl (80-96) 02/23/17 06:00 MCHC 32.9 g/dl (32.0-35.9) 02/23/17 06:00 RDW 15.8 % (11.9-15.9) 02/23/17 06:00 Plt Count 136 K/MM3 (134-434) 02/23/17 06:00 MPV 9.0 fl (7.5-11.1) 02/23/17 06:00 CMP Sodium 142 mmol/L (136-145) 02/22/17 04:33 Potassium 4.1 mmol/L (3.5-5.1) D 02/22/17 04:33 Chloride 108 mmol/L (98-107) H 02/22/17 04:33 Carbon Dioxide 24 mmol/L (21-32) 02/22/17 04:33 Anion Gap 10 (8-16) 02/22/17 04:33 BUN 48 mg/dL (7-18) H 02/22/17 04:33 Creatinine 2.1 mg/dL (0.7-1.3) H 02/22/17 04:33 Creat Clearance w eGFR 30.09 (>60) 02/22/17 04:33 Calcium 8.1 mg/dL (8.5-10.1) L 02/22/17 04:33 Total Bilirubin 0.5 mg/dL (0.2-1.0) D 02/22/17 04:33 AST 13 U/L (15-37) L 02/22/17 04:33 ALT 14 U/L (12-78) 02/22/17 04:33 Alkaline Phosphatase 52 U/L (45-117) 02/22/17 04:33 Total Protein 6.2 g/dl (6.4-8.2) L 02/22/17 04:33 Albumin 2.9 g/dl (3.4-5.0) L 02/22/17 04:33 - Neuro Exam Level Of Consciousness: Yes: Alert, Oriented to Person Eyes: Yes: HOLDEN Speech: Garbled Dominant Hand: Right Mini Mental Exam: Awake, alert, follows 2 step commands, disoriented Cranial Nerves II-XII Intact: No (old right diminished nasolabial fold) Gag: Present DTR's: 0 Left Brachioradialis, 0 Right Brachioradialis, 0 Left Achilles, 0 Right Achilles, 1+ Left Bicep, 1+ Right Bicep, 1+ Left Tricep, 1+ Right Tricep Response to light touch: Normal (withdraws all 4 ext. to pain) Motor Strength: 4/5: Left Leg, Right Leg, 5/5: Left Arm, Right Arm Gait: Deferred Imaging - Results Cat Scan: Report Reviewed (Head CT: chronic ischemic changes of lt b. ganglia with compensatory dilation of left lateral ventricle. prior infarct of rt frontal solano radiata. rt V-P shunt. no hydrocephalus. no acute bleed or infarct.) Assessment/Plan Pt. with likely syncope-he has a past hx and this current event appears to have been syncopal?? dehydration but will r/o new infarct. MRI P check EEG r/o seizure baseline dementia /NPH --appaers stable cardiology FU Dr Mcdonnell
--- NOTE | 2017-02-24 09:35 | PN ---
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, h/o syncope at least 3x in past last one on July CAD HTN PVD Hypothyroidism NPH-vp software shunt Dementia now admitted for altered MS and syncope not septic telemetry uneventful so far other than PVCs EEG diffuse slowing MRi brain can be done as outpt-needs to be reprogrammed by neurosurgeon after procedure consults appreciated PT f/up Problem List - Problems (1) Altered mental status Code(s): R41.82 - ALTERED MENTAL STATUS, UNSPECIFIED Qualifiers: Altered mental status type: transient alteration of awareness Qualified Code(s): R40.4 - Transient alteration of awareness (2) Hypothyroidism Code(s): E03.9 - HYPOTHYROIDISM, UNSPECIFIED Qualifiers: Hypothyroidism type: unspecified Qualified Code(s): E03.9 - Hypothyroidism, unspecified (3) Hypertension Code(s): I10 - ESSENTIAL (PRIMARY) HYPERTENSION (4) PAD (peripheral artery disease) Code(s): I73.9 - PERIPHERAL VASCULAR DISEASE, UNSPECIFIED (5) Syncope Code(s): R55 - SYNCOPE AND COLLAPSE Qualifiers: Syncope type: unspecified Qualified Code(s): R55 - Syncope and collapse
[2017-02-24] MEDS: METOPROLOL SUCCINATE 50 MG TAB.SR.24H (FP) PO SCH (09:43)
[2017-02-24] MEDS: ASPIRIN 81 MG CHEWABLE TABLETS PO SCH (09:43)
[2017-02-24] MEDS: CILOSTAZOL 50 MG TABLET (FP) PO SCH (09:44)
[2017-02-24] MEDS: amLODIPine BESYLATE 2.5 MG TABLET (FP) PO SCH (09:44)
[2017-02-24] MEDS ORDERED: hydrALAZINE HCL 10 MG TABLET PO SCH (10:00)
--- NOTE | 2017-02-24 10:34 | PN ---
Progress Note (short form) - Note Progress Note: s: no cp sob palps dizzy o: Vital Signs Period Temp Pulse Resp BP Sys/Hanson Pulse Ox Last 24 Hr 97.6 F-98.6 F 77-83 18-20 132-162/69-93 96 NAD, calm JVD flat, neck supple CTAB, nl effort regular. nl s1, s2 no m/r/g + bs soft nt nd ext without e/c/c aaox 1 no jaundice, diaphoresis. Current Medications Generic Name Dose Route Start Last Admin Trade Name Bianca PRN Reason Stop Dose Admin Amlodipine Besylate 5 mg 02/22/17 17:42 02/24/17 09:44 Norvasc - PO 5 mg BID ELIAS Administration Aspirin 81 mg 02/22/17 10:00 02/24/17 09:43 Asa - PO 81 mg DAILY ELIAS Administration Atorvastatin Calcium 20 mg 02/22/17 22:00 02/23/17 21:42 Lipitor - PO 20 mg HS ELIAS Administration Cilostazol 100 mg 02/22/17 10:00 02/24/17 09:44 Pletal - PO 100 mg BID ELIAS Administration Hydralazine HCl 10 mg 02/24/17 10:00 02/24/17 09:44 Apresoline - PO 10 mg BID ELIAS Administration Levothyroxine Sodium 88 mcg 02/22/17 10:00 02/24/17 06:32 Synthroid - PO 88 mcg DAILY@0700 ELIAS Administration Metoprolol Succinate 50 mg 02/22/17 10:00 02/24/17 09:43 Toprol Xl - PO 50 mg BID ELIAS Administration Pantoprazole Sodium 40 mg 02/22/17 12:00 02/23/17 12:00 Protonix - PO 40 mg 1200 ELIAS Administration CBC, BMP 02/23/17 06:00 02/23/17 06:00 tele: sr, pvc's ekg: nsr. lbbb. Head CT: chronic ischemic changes of lt b. ganglia with compensatory dilation of left lateral ventricle. prior infarct of rt frontal solano radiata. rt V-P shunt. no hydrocephalus. no acute bleed or infarct. echo 07/2016: nl lv/rv, mild mr/tr, rvsp 30-40 carotids 07/2016: 50-69% bl a/p: 86 with h/o HTN, HL, TIA/CVA, PAD, LBBB, hypothyroidism, NIDDM, hypothyroid, dementia, h/o prior rt V-P shunt (? timing of placement). p/w syncope/unresponsiveness/? recurrent tia. syncope vs. cerebrovascular event - cont telemetry monitoring, benign so far - recent echo, carotids w/o etiology - ce's neg x 2. - possibly related to vol depletion - neuro eval in progress, mri pending TIA/CVA - head CT with chronic changes, but no acute infarct, - con't asa, statin - plans per neuro HTN - BP still high at times. Will con't amlodipine, metoprolol. Will start hydralazine 10 bid today. HLD: on statin PAD with claudication. - asa, statin, pletal.
--- NOTE | 2017-02-24 11:44 | PN ---
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 Selected Entries 02/23/17 02/23/17 02/23/17 02:33 05:27 11:44 Breakfast 25% Lunch Supper Temperature 97.6 F 98.2 F 02/23/17 02/23/17 02/23/17 14:00 18:30 20:15 Breakfast Lunch 25% Supper 50% Temperature 98.1 F 98.2 F 98.6 F 02/24/17 02/24/17 05:45 11:02 Breakfast 75% Lunch Supper Temperature 97.6 F Laboratory Tests 02/23/17 06:00 WBC 5.5 Recommendations - Speech Evaluation, Impression/Plan Impression: Anomia with disorientation and confusion with poor ability to recall after 1 minute without distraction. Denies age of 86 or being in hospital. Speech is precise. Cooperative and attetntive. Swallowing delayed but fairly strong. Functional.. 3 o water test (-). Good mastication. - Dysphagia Impressions/Plan Dysphagia Impressions: Mild Impairment, Risk of Aspiration *Silent aspiration: cannot be R/O at bedside Dysphagia Treatment Plan: Chin Tuck/Down, Trial Feedings, Facilitative Feeding, Safe Rate, OOB for meals, OOB for 1 h. after meals Recommendations: Modified Barium Swallow (if cough,congestion.) - Recommendations Diet Consistency: Regular (soft, easy to chew), Other (assist with meals.) Liquids: Thin Liquids
[2017-02-24 12:26] VITALS: BP 165/82; PULSE 80; TEMP 98.3
--- NOTE | 2017-02-24 13:18 | DS ---
Physical Examination Vital Signs: Vital Signs Temperature 98.3 F 02/24/17 10:00 Pulse Rate 80 02/24/17 10:00 Respiratory Rate 20 02/24/17 10:00 Blood Pressure 165/82 02/24/17 10:00 O2 Sat by Pulse Oximetry (%) 96 02/24/17 09:00 Constitutional: Yes: No Distress, Calm Eyes: Yes: EOM Intact HENT: Yes: Normocephalic Neck: Yes: Trachea Midline Cardiovascular: Yes: Regular Rate and Rhythm Respiratory: Yes: CTA Bilaterally Gastrointestinal: Yes: Normal Bowel Sounds, Soft Edema: No Neurological: Yes: WNL. No: Oriented Labs: CBC, BMP 02/23/17 06:00 02/23/17 06:00 Discharge Summary Reason For Visit: AMS,HYPOTHROIDISM Current Active Problems Altered mental status (Acute) Hypothyroidism (Acute) Hospital Course: Admitted for altered mental status/syncopal episode-pt completely recovered to baseline within [address] showed no acute abnormality-atrophy and prior strokes, no issues with recent BARREL HEADER shunt telemetry monitoring uneventful cardiac enzymes wnl eeg diffuse slowing can not complete MRI brain in hospital since evp managing director shunt would have to be reprogrammed. Bp medications were adjusted pt's family was instructed to f/up with neurosurgeon's office for MRI and evp managing director shunt management Condition: Unchanged/Unknown - Instructions Referrals: Alonzo Yadav MD [Primary Care Provider] - Disposition: VNS/HOME HEALTH CARE - Home Medications Comprehensive Discharge Medication List: Ambulatory Orders Aspirin [ASA -] 81 mg PO DAILY 02/22/17 Atorvastatin Ca [Lipitor] 20 mg PO HS 02/22/17 Cilostazol 100 mg PO BID 02/22/17 Levothyroxine Sodium [Synthroid] 88 mcg PO DAILY 02/22/17 Metoprolol Tartrate [Lopressor -] 50 mg PO BID 02/22/17 Pantoprazole Sodium [Protonix -] 40 mg PO DAILY 02/22/17 Quetiapine Fumarate [Seroquel -] 25 mg PO DAILY 02/22/17 Rivastigmine [Exelon] 1 each TD DAILY 02/22/17 Amlodipine Besylate [Norvasc -] 5 mg PO BID #60 tablet 02/24/17 Hydralazine HCl [Apresoline -] 10 mg PO BID #60 tablet 02/24/17
--- NOTE | 2017-02-24 14:37 | PN ---
Progress Note (short form) - Note Progress Note: Case discussed with patient's son and course of care reviewed. All questions answered. I discussed the continuing differential diagnosis of seizures, CVA/ TIA and hydrocephalus as well as non-neurological etiologies for his episodes. All were in agreement with current plan for discharge and outpatient MRI and reprogramming of shunt valve as well as EEG monitoring and completion of cardiac /metabolic evaluation.
== END 2017-02-24 14:09 | disposition home health service (06) ==
LOC: JER 04:26 → UNDOADMOB 06:44 → INTOOBSV 06:44 → JERBED 06:44 → J4W 16:32
PROVIDERS: ADMIT Internal Medicine; ATTEND Internal Medicine
DX: R41.82 Altered mental status, unspecified (principal); E03.9 Hypothyroidism, unspecified; I10 Essential (primary) hypertension; I73.9 Peripheral vascular disease, unspecified; F03.90 Unspecified dementia, unspecified severity, without behavioral disturbance, psychotic disturbance, mood disturbance, and anxiety; K21.9 Gastro-esophageal reflux disease without esophagitis; G40.909 Epilepsy, unspecified, not intractable, without status epilepticus; Z86.73 Personal history of transient ischemic attack (TIA), and cerebral infarction without residual deficits; Z79.82 Long term (current) use of aspirin; E78.5 Hyperlipidemia, unspecified; I70.1 Atherosclerosis of renal artery; J44.9 Chronic obstructive pulmonary disease, unspecified; Z85.46 Personal history of malignant neoplasm of prostate; Z92.3 Personal history of irradiation; R40.4 Transient alteration of awareness; R55 Syncope and collapse
CPT/HCPCS: 36415; 70450-TC; 71020-TC; 80053; 81003; 82465; 83718; 83721; 83735; 84443; 84478; 84484; 85025; 85610; 86850; 86900; 86901; 93005; 93010; 95816; 97116-GP; 97161-GP; 99285-25; G0378

== ENCOUNTER 2017-05-22 22:27 | Observation (INO) | payer OTHER ==
--- NOTE | 2017-05-22 22:52 | PDOC ---
History of Present Illness - General History Source: Family Exam Limitations: Unresponsive - History of Present Illness Initial Comments: 05/22/17 22:56 The patient is a 86 year old male with a significant past medical history of HTN , TIA CVA, hypothyroidism, PAD, dementia, hydrocephalus s/p HOSPICE EXECUTIVE DIRECTOR shunt who presents to the ED, via EMS, for altered mental status. As per family, the patient was at his mental baseline this morning, ambulating and verbal. Family states the patient took a nap on his couch early today and when he woke up around 9pm, he was unresponsive and not ambulating. Denies head injury. HPI is limited secondary to patient being nonverbal. <Julian Avendaño - Last Filed: 05/22/17 23:58> <Nicole Amado - Last Filed: 05/23/17 00:28> - General Chief Complaint: Altered Mental Status Stated Complaint: ALTERED MENTAL STATUS Time Seen by Provider: 05/22/17 22:52 Past History <Julian Avendaño - Last Filed: 05/22/17 23:58> - Past Medical History Cancer: Yes (prostate, radiation) Cardiac Disorders: Yes CVA: Yes (TIA) Dementia: Yes Diabetes: Yes (pre diabetic) Disorders: Yes (GERD) HTN: Yes Seizures: Yes Thyroid Disease: Yes (hypo) - Surgical History Cardiac Surgery: Yes (Cardiac Cath) Neurologic Surgery: Yes - Immunization History Immunization Up to Date: No - Suicide/Smoking/Psychosocial Hx Smoking Status: No Smoking History: Never smoked Have you smoked in the past 12 months: No Number of Cigarettes Smoked Daily: 0 If you are a former smoker, when did you quit?: 1989 Hx Alcohol Use: No Drug/Substance Use Hx: No Substance Use Type: None Hx Substance Use Treatment: No <Nicole Amado - Last Filed: 05/23/17 00:28> - Past Medical History Allergies/Adverse Reactions: Allergies Allergy/AdvReac Type Severity Reaction Status Date / Time No Known Allergies Allergy Verified 05/22/17 22:50 Home Medications: Ambulatory Orders Aspirin [ASA -] 81 mg PO DAILY 02/22/17 Atorvastatin Ca [Lipitor] 20 mg PO HS 02/22/17 Levothyroxine Sodium [Synthroid] 88 mcg PO DAILY 02/22/17 Metoprolol Tartrate [Lopressor -] 50 mg PO BID 02/22/17 Pantoprazole Sodium [Protonix -] 40 mg PO DAILY 02/22/17 Quetiapine Fumarate [Seroquel -] 25 mg PO DAILY 02/22/17 Rivastigmine [Exelon] 1 each TD DAILY 02/22/17 Hydralazine HCl [Apresoline -] 10 mg PO BID #60 tablet 02/24/17 Review of Systems - Review of Systems Able to Perform ROS?: No Comments:: 05/22/17 22:57 Unable to perform ROS secondary to patient being nonverbal. <Julian Avendaño - Last Filed: 05/22/17 23:58> *Physical Exam - Vital Signs Last Vital Signs Temp Pulse Resp BP Pulse Ox 77 14 219/85 97 05/22/17 22:50 05/22/17 22:50 05/22/17 22:50 05/22/17 22:50 - Physical Exam Comments: 05/22/17 22:57 GENERAL: No acute distress. HEENT: Normocephalic, atraumatic. PERRLA, EOMI. No conjunctival pallor. Sclera are non- icteric. Moist mucous membranes. Oropharynx is clear. NECK: Supple. Full ROM. No JVD. Carotid pulses 2+ and symmetric, without bruits. No thyromegaly. NCo lymphadenopathy. CARDIOVASCULAR: Regular rate and rhythm. No murmurs, rubs, or gallops. Distal pulses are 2+ and symmetric. PULMONARY: No evidence of respiratory distress. Lungs clear to auscultation bilaterally. No wheezing, rales or rhonchi. ABDOMINAL: Soft. Non-tender. Non-distended. No rebound or guarding. No organomegaly. Normoactive bowel sounds. MUSCULOSKELETAL Normal range of motion at all joints. No bony deformities or tenderness. No CVA tenderness. EXTREMITIES: No cyanosis. No clubbing. No edema. No calf tenderness. SKIN: Warm and dry. Normal capillary refill. No rashes. No jaundice. NEUROLOGICAL: + nonverbal, not able to follow commands, <Julian Avendaño - Last Filed: 05/22/17 23:58> NIH Stroke Scale - Last Known Well Date/Time & Onset Date Last Known Well: 05/22/17 Time Last Known Well: 21:00 - Initial Evaluation Level of consciousness: Alert Ask patient the month and their age: Both incorrect Ask patient to open & close eyes; make fist and let go: Obeys both correctly Best gaze (horizontal eye movement): Normal Visual field testing: No visual field loss Facial paresis (Show teeth/raise eyebrows/close eyes tight): Normal symmetrical movement Motor Function: Left Arm: Normal Motor Function: Right Arm: Normal (extends arm 90 (or 45) degrees for 10 seconds without drift Motor Function: Left Leg: Normal (extends leg 30 degrees for 5 seconds without drift) Motor Function: Right Leg: Normal (extends leg 30 degrees for 5 seconds without drift) Limb Ataxia: No ataxia Sensory(Use pinprick test arms,legs,trunk,face/side to side): Normal Best language (Describe picture, name items, read sentences): No Aphasia Dysarthria (read several words): Normal articulation Extinction and Inattention: No abnormality - Total Score NIH Stroke Scale Score: 2 <Nicole Amado - Last Filed: 05/23/17 00:28> tPA Exclusion Checklist 0-3hr - Time Elapsed Date last known well: 05/22/17 Time last known well: 21:00 Elaspsed time: Day(s) and 3 Hour(s) and 27 Minutes - Thrombolytic Therapy Candidate Is the patient eligible for Thrombolytic Therapy?: No - Exclusion Criteria 0-3hr SBP greater than 185 or DBP greater than 110mmHg despite tx: Yes Recent IC/spinal surgery,head trauma or stroke w/in last 3mo: No Hx of previous IC hemorrhage, IC neoplasm, AVM or aneurysm: Yes Active internal bleeding: No Blding diathesis(low plt ct, inc PTT,INR>1.7 or use of NOAC): No Symptoms suggest subarachnoid hemorrhage: No CT demonstrates multilobar infarct(>1/3 cerebral hemiphere): No Arterial puncture at noncompressible site in previous 7 days: No Blood glucose concentration less than 50mg/dL (2.7mmol/L): No - Relative Exclusion Criteria 0-3h Life expectancy <1yr/severe co-morbid illness/YARN HAULER on admit: No : No Patient/family refused: No Rapid improvement: Yes Stroke severity too mild: Yes Recent acute KS (w/in previous 3 months): No Seizure at onset with postictal residual neuro impairments: No Major surgery or serious trauma w/in previous 14 days: No Recent GI or hemorrhage (w/in previous 21 days): No - Ineligibility reason(s) Reasons No tPA given: See reason(s) noted above (pt's symptoms totally resolved abour 30 minutes after arrival) <Nicole Amado - Last Filed: 05/23/17 00:28> Critical Care Time/[facility] Note - Medical Decision Making Note: 05/22/17 23:58 EXAM: CT HEAD FINDINGS: A ventriculostomy tube is present with tip in the left trigone. Unchanged. And ventricular size is stable. Again note is made of a left basal ganglia/internal capsule/subinsular infarct. Present previously. No appreciable acute or subacute infarct. Please note that infarcts less than 6 hours from onset may not be detectable on CT. MRI is more sensitive for this. No hemorrhage. No shift or herniation. Osseous structures are intact. Reported by: Imaging collections analyst Documentation prepared by Julian Avendaño, acting as vice president medical affairs for Nicole Amado MD <Julian Avendaño - Last Filed: 05/22/17 23:58> Discharge Disposition <Julian Avendaño - Last Filed: 05/22/17 23:58> - Discharge Dispostion Last Admission D/C Date: 11/05/13 Admit: Yes <Nicole Amado - Last Filed: 05/23/17 00:28> - Diagnosis Altered mental status Qualifiers: Altered mental status type: transient alteration of awareness Qualified Code(s) : R40.4 - Transient alteration of awareness Hypertension Qualifiers: Hypertension type: unspecified Qualified Code(s): I10 - Essential (primary) hypertension
[2017-05-22 22:57] VITALS: BMI 22.3
[2017-05-22] MEDS ORDERED: SODIUM CHLORIDE 1,000 ML IV SCH (23:00)
[2017-05-22 23:30] LABS: BASOPHIL 0.3 % (0-2.0); EOSINOPHIL 1.9 % (0-4.5); MCH 29.2 pg (25.7-33.7); MCHC 33.5 g/dl (32.0-35.9); MEAN PLT VOLUME 9.6 fl (7.5-11.1); NEUTROPHILS 59.3 % (42.8-82.8); PLATELET COUNT 135 K/MM3 (134-434); RDW 15.4 % (11.9-15.9)
[2017-05-22 23:38] LABS: PH,URINE 6.5 (5.0-8.0); URINE APPEARANCE CLEAR; URINE BILIRUBIN NEGATIVE (NEGATIVE); URINE BLOOD NEGATIVE (NEGATIVE); URINE COLOR LT. YELLOW; URINE GLUCOSE (UA) NEGATIVE (NEGATIVE); URINE KETONE NEGATIVE (NEGATIVE); URINE NITRITE NEGATIVE (NEGATIVE); URINE PROTEIN NEGATIVE (NEGATIVE); URINE UROBILINOGEN 0.2 mg/dL (0.2-1.0)
[2017-05-22 23:42] LABS: INR 1.06 (0.82-1.09)
[2017-05-22 23:55] LABS: ALBUMIN 3.2 g/dl (3.4-5.0); ANION GAP 9 (8-16); CALCIUM 8.6 mg/dL (8.5-10.1); CHOLESTEROL 189 mg/dL (50-200); CO2 26 mmol/L (21-32); CREATININE 1.8 mg/dL (0.7-1.3); GLUCOSE,RANDOM 119 mg/dL (74-106); SGOT/AST 18 U/L (15-37); SGPT/ALT 20 U/L (12-78)
[2017-05-22 23:58] LABS: ALK PHOS 59 U/L (45-117); BILIRUBIN,TOTAL 0.6 mg/dL (0.2-1.0); CPK 55 IU/L (39-308); TOT PROT 6.8 g/dl (6.4-8.2); TROPONIN I < 0.02 ng/ml (0.00-0.05)
[2017-05-23] MEDS ORDERED: FLU VACCINE QUAD 60 MCG/0.5 ML (MDV 17-18) IM ONE ×2 (02:48→10:45)
[2017-05-23] MEDS ORDERED: amLODIPine BESYLATE 10 MG TABLET (FP) PO ONE (06:39)
[2017-05-23] MEDS: LEVOTHYROXINE NA 88 MCG TABLET (FP) PO SCH (07:36)
[2017-05-23 09:00] LABS: ALBUMIN 2.9 g/dl (3.4-5.0); ANION GAP 5 (8-16); BILIRUBIN,TOTAL 0.7 mg/dL (0.2-1.0); CO2 27 mmol/L (21-32); CREATININE 1.6 mg/dL (0.7-1.3); GLUCOSE,RANDOM 105 mg/dL (74-106); SGOT/AST 14 U/L (15-37); SGPT/ALT 17 U/L (12-78); TOT PROT 6.3 g/dl (6.4-8.2)
--- NOTE | 2017-05-23 09:07 | HP ---
Admitting History and Physical - Primary Care Physician PCP: Alonzo Yadav - Admission Chief Complaint: unresponsive episode History of Present Illness: at night noted that patient became unresponsive, his dentures fell out and family could not wake him up. episode lasted until he came to er, where he woke up, without any intervention. has been in his usual state of health otherwise. no change in his medications. 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: CVA (2009, 2010), Dementia Cardiovascular: Yes: HTN (labile), Hyperlipdemia, Other (peripheral arterial disease renal artery stenosis s/p Left renal stent) Pulmonary: Yes: COPD Renal/: Yes: Renal Inusuff (s/p left renal artery stent 2007), Other ( prostate cancer s/p XRT) Endocrine: Yes: Hypothyroidism - Past Surgical History Additional Past Surgical History: Intracranial shunt placement January 2017 - Advance Directives Advance Directives: Yes: Health Care Proxy - Smoking History Smoking history: Never smoked Have you smoked in the past 12 months: No Aproximately how many cigarettes per day: 0 If you are a former smoker, when did you quit?: 1989 - Alcohol/Substance Use Hx Alcohol Use: No - Social History ADL: Family Assistance History of Recent Travel: No Home Medications - Allergies Allergies/Adverse Reactions: Allergies Allergy/AdvReac Type Severity Reaction Status Date / Time No Known Allergies Allergy Verified 05/22/17 22:50 - Home Medications Home Medications: Ambulatory Orders Aspirin [ASA -] 81 mg PO DAILY 02/22/17 Atorvastatin Ca [Lipitor] 20 mg PO HS 02/22/17 Levothyroxine Sodium [Synthroid] 88 mcg PO DAILY 02/22/17 Metoprolol Tartrate [Lopressor -] 25 mg PO BID 02/22/17 Pantoprazole Sodium [Protonix -] 40 mg PO DAILY 02/22/17 Quetiapine Fumarate [Seroquel -] 12.5 mg PO HS 02/22/17 Family Disease History - Family Disease History Family History: Unable to Obtain Review of Systems Findings/Remarks: limited due to dementia and slight language barrier - Review of Systems Constitutional: reports: No Symptoms Eyes: reports: No Symptoms Neck: reports: No Symptoms Cardiovascular: reports: No Symptoms Respiratory: reports: No Symptoms Gastrointestinal: reports: No Symptoms Genitourinary: reports: No Symptoms Neurological: reports: Confusion. denies: Headache, Seizure, Syncope Psychiatric: reports: No Symptoms Physical Examination Vital Signs: Vital Signs Temperature 98.1 F 05/23/17 06:00 Pulse Rate 80 05/23/17 06:00 Respiratory Rate 20 05/23/17 06:00 Blood Pressure 193/94 05/23/17 06:00 O2 Sat by Pulse Oximetry (%) 97 05/23/17 02:08 Findings/Remarks: eating breakfast well Constitutional: Yes: Well Nourished, No Distress, Calm Eyes: Yes: Conjunctiva Clear HENT: Yes: Atraumatic, Normocephalic Neck: Yes: Trachea Midline Cardiovascular: Yes: Regular Rate and Rhythm Respiratory: Yes: CTA Bilaterally Gastrointestinal: Yes: Normal Bowel Sounds, Soft Extremities: Yes: WNL Edema: No Neurological: Yes: WNL (oriented to person and hospital, thinks he is 75, follows commands well, no focal neuro deficit noted) Psychiatric: Yes: WNL, Alert Labs: CBC, BMP 05/22/17 23:15 Laboratory Results - last 24 hr 05/22/17 05/22/17 05/22/17 23:15 23:23 23:23 WBC 6.0 RBC 4.08 Hgb 11.9 Hct 35.5 MCV 87.0 MCH 29.2 MCHC 33.5 RDW 15.4 Plt Count 135 MPV 9.6 Neutrophils % 59.3 Lymphocytes % 27.2 Monocytes % 11.3 H Eosinophils % 1.9 Basophils % 0.3 PT with INR 12.00 H INR 1.06 Sodium Potassium Chloride Carbon Dioxide Anion Gap BUN Creatinine Creat Clearance w eGFR Random Glucose Calcium Total Bilirubin AST ALT Alkaline Phosphatase Creatine Kinase Troponin I Total Protein Albumin Triglycerides Cholesterol Total LDL Cholesterol HDL Cholesterol Urine Color Lt. yellow Urine Appearance Clear Urine pH 6.5 D Ur Specific [place] <= 1.005 Urine Protein Negative Urine Glucose (UA) Negative Urine Ketones Negative Urine Blood Negative Urine Nitrite Negative Urine Bilirubin Negative Urine Urobilinogen 0.2 Blood Type Antibody Screen 05/22/17 05/22/17 23:23 23:23 WBC RBC Hgb Hct MCV MCH MCHC RDW Plt Count MPV Neutrophils % Lymphocytes % Monocytes % Eosinophils % Basophils % PT with INR INR Sodium 141 Potassium 4.4 Chloride 106 Carbon Dioxide 26 Anion Gap 9 BUN 41 H D Creatinine 1.8 H Creat Clearance w eGFR 35.95 Random Glucose 119 H Calcium 8.6 Total Bilirubin 0.6 D AST 18 D ALT 20 D Alkaline Phosphatase 59 Creatine Kinase 55 Troponin I < 0.02 Total Protein 6.8 Albumin 3.2 L Triglycerides 246 H D Cholesterol 189 Total LDL Cholesterol 113 H HDL Cholesterol 42 Urine Color Urine Appearance Urine pH Ur Specific [place] Urine Protein Urine Glucose (UA) Urine Ketones Urine Blood Urine Nitrite Urine Bilirubin Urine Urobilinogen Blood Type A POSITIVE Antibody Screen Negative Imaging - Results Chest X-ray: Report Reviewed Cat Scan: Report Reviewed Problem List - Problems (1) Dementia Code(s): F03.90 - UNSPECIFIED DEMENTIA WITHOUT BEHAVIORAL DISTURBANCE Qualifiers: Dementia type: vascular dementia Dementia behavioral disturbance: without behavioral disturbance Qualified Code(s): F01.50 - Vascular dementia without behavioral disturbance (2) Normal pressure hydrocephalus Code(s): G91.2 - (IDIOPATHIC) NORMAL PRESSURE HYDROCEPHALUS (3) Altered mental status Code(s): R41.82 - ALTERED MENTAL STATUS, UNSPECIFIED Qualifiers: Altered mental status type: transient alteration of awareness Qualified Code(s): R40.4 - Transient alteration of awareness (4) Hypertension Code(s): I10 - ESSENTIAL (PRIMARY) HYPERTENSION Qualifiers: Hypertension type: unspecified Qualified Code(s): I10 - Essential (primary ) hypertension (5) Hypothyroidism Code(s): E03.9 - HYPOTHYROIDISM, UNSPECIFIED Qualifiers: Hypothyroidism type: unspecified Qualified Code(s): E03.9 - Hypothyroidism , unspecified (6) PAD (peripheral artery disease) Code(s): I73.9 - PERIPHERAL VASCULAR DISEASE, UNSPECIFIED Assessment/Plan EEG can not have MRI with recent shunt neur and cardiac eval requested SCD boots while in bed Physical therapy dc planning depending on above
[2017-05-23 09:09] LABS: ALK PHOS 56 U/L (45-117); THYROID STIMULATING HORMONE 2.43 uIU/ml (0.358-3.74)
[2017-05-23] MEDS: ASPIRIN 81 MG CHEWABLE TABLETS PO SCH (09:26)
[2017-05-23] MEDS: PANTOPRAZOLE 40 MG TABLET (FP) PO SCH (09:26)
--- NOTE | 2017-05-23 09:36 | PN ---
Progress Note, Physician - Current Medication List Current Medications: Active Medications Amlodipine Besylate (Norvasc -) 10 mg PO DAILY [facility] Aspirin (Asa -) 81 mg PO DAILY [facility] Atorvastatin Calcium (Lipitor -) 20 mg PO HS [facility] Enoxaparin Sodium (Lovenox -) 30 mg SQ DAILY [facility] Sodium Chloride (Normal Saline -) 1,000 mls @ 42 mls/hr IV ASDIR [facility] Last Admin: 05/22/17 23:03 Dose: 42 mls/hr Influenza Virus Vaccine Quadrival (Flulaval Quad [id number]) 60 mcg IM .ONCE ONE Stop: 05/23/17 02:49 Levothyroxine Sodium (Synthroid -) 88 mcg PO DAILY@0700 [facility] Last Admin: 05/23/17 07:36 Dose: 88 mcg Metoprolol Tartrate (Lopressor -) 25 mg PO BID [facility] Pantoprazole Sodium (Protonix -) 40 mg PO DAILY [facility] Quetiapine Fumarate (Seroquel -) 12.5 mg PO HS [facility] - Objective Vital Signs: Vital Signs Temperature 98.1 F 05/23/17 06:00 Pulse Rate 80 05/23/17 06:00 Respiratory Rate 20 05/23/17 06:00 Blood Pressure 193/94 05/23/17 06:00 O2 Sat by Pulse Oximetry (%) 97 05/23/17 02:08 Labs: CBC, BMP 05/22/17 23:15 05/23/17 08:10 INR, PTT INR 1.06 (0.82-1.09) 05/22/17 23:23 Assessment/Plan Head CT: chronic ischemic changes of L b. ganglia, prior infarct of rt frontal solano radiata. rt V-P shunt with no signs of hydrocephalus. echo 07/2016: nl lv/rv, mild mr/tr, rvsp 30-40 carotids 07/2016: 50-69% bilat a/p: 86 with h/o labile HTN, orthostatic hypotension/recurrent syncope, HPL, old CVAs, PAD, CAD (asymptomatic), LBBB, hypothyroidism, NIDDM, dementia, ? normal pressure hydrocephalus s/p V-P shunt 2017, here with recurrent syncope recurrent syncope - pt with chronic, known orthostatic hypotension (? autonomic insufficiency) with prior syncope's - sx's worsened in past 6 mo or so, with multiple admits for syncope, at times seated with ? vagal component (including ? post-prandial at least once) - mult admits with neuro and cardio w/u, failed to reveal etiology - has labile bp, with meds adjusted to minimize venodilation (amlodipine and nitro patch stopped), tolerating bp's up to 170 - saw neuro (dr moody) as outpt recently re: ? pyridostigmine trial (labile bp' s up to 200 often will not tolerate fludrocortisone or midodrine)--he felt the pro-cholinergic effects of the med will likely worsen dementia/confusion TIA/CVA - head CT with chronic changes, but no acute infarct, - con't asa, statin - plans per neuro HTN - very labile bp's, up to 200s. tolerating bp to 170 in order to minimize syncopes - home regimen as of 03/06 o.v. = metoprolol 37.5 bid CKD: -baseline creat range 1.5-2.1 -renal fxn stable here HLD: - sec prevention - cont home statin CAD: - chronic dz on prior cath, with no angina and no ischemia on office testing - no signs of ACS here - cont home ASA, statin PAD with claudication: - asa, statin - off cilostazol now given hi falls risk with bleeding on dual anti-PLTs, and no recent claudication as low activity level
--- NOTE | 2017-05-23 09:38 | CON.CARD ---
Consult Consult Specialty:: CARDIO Referred by:: librado Reason for Consultation:: syncope - History of Present Illness Chief Complaint: same History of Present Illness: 86 yo male here for syncope. ate dinner around 7pm yest. was napping on the couch around 8:30 when noted dentures falling out of his mouth. she tried to wake him up but he was unresponsive. she checked his VSs and sbp was 200 or so. she cannot recall what the HR was ( thinks it is written down at home). 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: CVA (2009, 2010), Dementia Cardio/Vascular: Yes: HTN (labile), Hyperlipdemia, Other (peripheral arterial disease renal artery stenosis s/p Left renal stent) Pulmonary: Yes: COPD Renal/: Yes: Renal Inusuff (s/p left renal artery stent 2007), Other ( prostate cancer s/p XRT) Endocrine: Yes: Hypothyroidism - Alcohol/Substance Use Hx Alcohol Use: No - Smoking History Smoking history: Never smoked Have you smoked in the past 12 months: No Aproximately how many cigarettes per day: 0 If you are a former smoker, when did you quit?: 1989 - Social History ADL: Family Assistance History of Recent Travel: No Home Medications - Allergies Allergies/Adverse Reactions: Allergies Allergy/AdvReac Type Severity Reaction Status Date / Time No Known Allergies Allergy Verified 05/22/17 22:50 - Home Medications Home Medications: Ambulatory Orders Aspirin [ASA -] 81 mg PO DAILY 02/22/17 Atorvastatin Ca [Lipitor] 20 mg PO HS 02/22/17 Levothyroxine Sodium [Synthroid] 88 mcg PO DAILY 02/22/17 Metoprolol Tartrate [Lopressor -] 25 mg PO BID 02/22/17 Pantoprazole Sodium [Protonix -] 40 mg PO DAILY 02/22/17 Quetiapine Fumarate [Seroquel -] 12.5 mg PO HS 02/22/17 Family Disease History - Family Disease History Family History: Denies (no known cmp) Review of Systems - Review of Systems Constitutional: denies: Chills, Fever Eyes: denies: Eye Pain HENT: denies: Nasal Congestion Neck: denies: Stiffness Cardiovascular: denies: Palpitations Respiratory: denies: Orthopnea, PND Gastrointestinal: denies: Diarrhea, Rectal Bleeding Genitourinary: denies: Burning, Hematuria Musculoskeletal: denies: Muscle Pain Integumentary: denies: Rash Neurological: denies: Numbness, Seizure Endocrine: denies: Excessive Sweating Hematology/Lymphatic: denies: Excessive Bleeding Vital Signs: Vital Signs Temperature 98.1 F 05/23/17 06:00 Pulse Rate 80 05/23/17 06:00 Respiratory Rate 20 05/23/17 06:00 Blood Pressure 193/94 05/23/17 06:00 O2 Sat by Pulse Oximetry (%) 97 05/23/17 02:08 Constitutional: Yes: Well Nourished, No Distress Eyes: No: Sclera Icterus HENT: No: Nasal Congestion Neck: No: Decreased ROM Respiratory: Yes: CTA Bilaterally. No: Accessory Muscle Use, Rales, Wheezes Gastrointestinal: Yes: Normal Bowel Sounds. No: Distention, Hepatomegaly, Palpable Mass, Tenderness Cardiovascular: Yes: Regular Rate and Rhythm JVD: No Carotid Bruit: No PMI: Non-Displaced Heart Sounds: Yes: S1, S2. No: Gallop Murmur: No: Systolic Murmur, Diastolic Murmur Musculoskeletal: Yes: Other (No kyphosis) Extremities: No: Cold, Cyanosis Edema: No Peripheral Pulses: 2+ Left Carotid, 2+ Right Carotid, 2+ Left Doralis Pedis, 2+ Right Dorsalis Pedis Integumentary: No: Jaundice Neurological: Yes: Alert. No: Seizure Psychiatric: No: Agitated - Other Data Labs, Other Data: CBC, BMP 05/22/17 23:15 05/23/17 08:10 INR, PTT INR 1.06 (0.82-1.09) 05/22/17 23:23 Troponin, BNP 05/22/17 23:23 Troponin I < 0.02 Troponin, BNP 05/22/17 23:23 Troponin I < 0.02 Laboratory Tests 05/22/17 05/22/17 05/23/17 23:15 23:23 08:10 WBC 6.0 Hgb 11.9 Plt Count 135 Sodium 141 Potassium 4.5 Carbon Dioxide 27 BUN 36 H Creatinine 1.8 H 1.6 H AST 14 L D ALT 17 Creatine Kinase 55 Troponin I < 0.02 Albumin 2.9 L Triglycerides 246 H D Cholesterol 189 Total LDL Cholesterol 113 H HDL Cholesterol 42 TSH 2.43 D tele: NSR, no bradyarr Imaging - Results Chest X-ray: Report Reviewed Cat Scan: Report Reviewed Assessment/Plan Head CT: chronic infarcts as before, no acute pathology. rt V-P shunt with no signs of hydrocephalus. echo 07/2016: nl lv/rv, mild mr/tr, rvsp 30-40 carotids 07/2016: 50-69% bilat MPI 01/03 (bryce): uninterp ecg (LBBB); IW scar with mild adelina-infarct ischemia. nl EF (mild HK of infer wall). no TID CXR: clear lungs/pleura ECG: NSR, LBBB (no change) a/p: 86 with h/o labile HTN, orthostatic hypotension/recurrent syncope, HPL, old CVAs, PAD, CAD (asymptomatic), LBBB, hypothyroidism, NIDDM, dementia, ? normal pressure hydrocephalus s/p V-P shunt 2016, here with recurrent syncope recurrent syncope - pt with chronic, known orthostatic hypotension (? autonomic insufficiency) with prior syncope's - sx's worsened in past 6 mo or so, with multiple admits for syncope, at times seated with ? vagal component (including ? post-prandial at least once) - mult admits with neuro and cardio w/u, failed to reveal etiology - THIS TIME, REPORTEDLY HOME BP CHECK AT TIME OF ONGOING UNRESPONSIVENESS WAS 200'S--makes post-prandial hypotension/vasovagal etiology unlikely - pt dementia confounds history here--? was deep sleep - cont telemetry - neuro eval as doing - if no etiology is found, would ideally like to do prolonged heart rhythm monitor as outpt to r/o bradyarrhythmia ( advised to check papers at home to see what HR was at time of event). he will not be able to comply with external event monitor due to dementia/agitation--will d/w dtr implantable loop recorder as outpt. - has labile bp, with meds adjusted to minimize venodilation (amlodipine and nitro patch stopped), tolerating bp's up to 170 - saw neuro (dr moody) as outpt recently re: ? pyridostigmine trial (labile bp' s up to 200 often will not tolerate fludrocortisone or midodrine)--he felt the pro-cholinergic effects of the med will likely worsen dementia/confusion - pt incapable of incr po fluids or abdominal binder (refuses family efforts). declined f/u with autonomic neuro specialist at [facility] [place]. HTN with hypertensive urgency - very labile bp's, up to 200s. tolerating bp to 170 in order to minimize syncopes - bp at home at time of unresponsiveness 200s per , similar in ER here - unfortunatley, tight bp control is impossible here as pt bottoms out easily and syncope results - home regimen as of 03/06 o.v. 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 chronic abd aorta dissection: -equivocal CT findings in ER with atyp abd pain presentation previously -saw vascular, no intervention deemed necessary
--- NOTE | 2017-05-23 09:54 | CON.NEURO ---
Consult Consult Specialty:: Neurology Referred by:: Dr. Salas Reason for Consultation:: Unresponsive episode (s) - History of Present Illness Chief Complaint: Unresponsive episode (s) History of Present Illness: The patient is a 86 year old man with a significant past medical history of HTN , TIA CVA, hypothyroidism, PAD, dementia, hydrocephalus s/p GUIDE ALPINE shunt who presents to the ED, via EMS, for altered mental status. As per family, the patient was at his mental baseline yesterday morning, ambulating and verbal. Family states the patient took a nap on his couch and the found him not looking quite right. She noticed that his dentures had fallen out of his mouth , and she tried, unsuccessfully to awaken him. EMS was summoned and he was finally roused in the ER. This is apparently the 4th or 5th similar episode over the past year, though during earlier episodes he was pale and diaphoretic. This time he seemed to look relatively normal except for the fact that they couldn't waken him and he was flaccid. The family notes no urinary incontinence , though during one of the earlier episodes this past year he defecated on himself. He has not had any convulsions. He is at baseline mildly demented. He had a shunt placed a few years ago for this and although he improved somewhat after the shunt, he did not return to baseline. His walking was impaired after the shunt and has deteriorated a little recently. 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: CVA (2009, 2010), Dementia, Other (hydrocephalus, s/p svp chief marketing officer shunt placement) Cardio/Vascular: Yes: HTN (labile), Hyperlipdemia, Other (peripheral arterial disease renal artery stenosis s/p Left renal stent) Pulmonary: Yes: COPD Renal/: Yes: Renal Inusuff (s/p left renal artery stent 2007), Other ( prostate cancer s/p XRT) Endocrine: Yes: Hypothyroidism - Past Surgical History Additional Surgical History: GUIDE ALPINE shunt - Alcohol/Substance Use Hx Alcohol Use: No - Smoking History Smoking history: Never smoked Have you smoked in the past 12 months: No Aproximately how many cigarettes per day: 0 If you are a former smoker, when did you quit?: 1989 - Social History ADL: Family Assistance History of Recent Travel: No Home Medications - Allergies Allergies/Adverse Reactions: Allergies Allergy/AdvReac Type Severity Reaction Status Date / Time No Known Allergies Allergy Verified 05/22/17 22:50 - Home Medications Home Medications: Ambulatory Orders Aspirin [ASA -] 81 mg PO DAILY 02/22/17 Atorvastatin Ca [Lipitor] 20 mg PO HS 02/22/17 Levothyroxine Sodium [Synthroid] 88 mcg PO DAILY 02/22/17 Metoprolol Tartrate [Lopressor -] 25 mg PO BID 02/22/17 Pantoprazole Sodium [Protonix -] 40 mg PO DAILY 02/22/17 Quetiapine Fumarate [Seroquel -] 12.5 mg PO HS 02/22/17 Physical Exam-Neuro Vital Signs: Vital Signs Temperature 98.1 F 05/23/17 06:00 Pulse Rate 80 05/23/17 06:00 Respiratory Rate 20 05/23/17 06:00 Blood Pressure 193/94 05/23/17 06:00 O2 Sat by Pulse Oximetry (%) 97 05/23/17 02:08 Constitutional: Yes: Well Nourished, No Distress, Calm Neck: Yes: Supple Psychiatric: Yes: Alert Labs: CBC, BMP 05/22/17 23:15 05/23/17 08:10 INR, PTT INR 1.06 (0.82-1.09) 05/22/17 23:23 - Neuro Exam Level Of Consciousness: Yes: Alert Eyes: Yes: PERRL, Other (no visual field cut, EOMI) Speech: WNL Cranial Nerves II-XII Intact: Yes DTR's: 2+ Left Bicep, 2+ Right Bicep, 2+ Left Tricep, 2+ Right Tricep, 2+ Left Brachioradialis, 2+ Right Brachioradialis Babinski: Absent Response to light touch: Normal Coordination: Normal: Finger to Nose Motor Strength: 5/5: Left Arm, Right Arm, Left Leg, Right Leg Gait: Deferred Imaging - Results Cat Scan: Report Reviewed (Chronic microvascular changes, GUIDE ALPINE shunt in place, atrophy), Image Reviewed Problem List - Problems (1) Altered mental status Code(s): R41.82 - ALTERED MENTAL STATUS, UNSPECIFIED Qualifiers: Altered mental status type: transient alteration of awareness Qualified Code(s): R40.4 - Transient alteration of awareness (2) Dementia Code(s): F03.90 - UNSPECIFIED DEMENTIA WITHOUT BEHAVIORAL DISTURBANCE Qualifiers: Dementia type: vascular dementia Dementia behavioral disturbance: without behavioral disturbance Qualified Code(s): F01.50 - Vascular dementia without behavioral disturbance (3) Hypertension Code(s): I10 - ESSENTIAL (PRIMARY) HYPERTENSION Qualifiers: Hypertension type: unspecified Qualified Code(s): I10 - Essential (primary ) hypertension (4) Normal pressure hydrocephalus Code(s): G91.2 - (IDIOPATHIC) NORMAL PRESSURE HYDROCEPHALUS Assessment/Plan 4th or 5th episode over last year of unresponsiveness of unclear etiology. Other episodes were accompanied by pale appearance and diaphoresis suggesting hypotension/syncopal nature, though this one didn't seem to be. He had one episode of fecal incontinence though not during this episode. I don't think that this sounds like a TIA, but it may have been cardiovascular syncope, a seizure or possibly both. Sometimes hypoperfusion during a syncopal event can precipitate a seizure. I'd recommend EEG as well as cardiac workup. Thanks. We'll f/u with you.
[2017-05-23] MEDS ORDERED: cloNIDine HCL 0.1 MG TABLET PO PRN (09:59)
[2017-05-23] MEDS ORDERED: METOPROLOL TARTRATE 25 MG TABLET (FP) PO SCH (10:00)
[2017-05-23 10:46] LABS: URINE LEUK ESTERASE Negative (NEGATIVE)
[2017-05-23] MEDS: METOPROLOL TARTRATE 25 MG TABLET (FP) PO SCH (12:49)
[2017-05-23] MEDS: ENOXAPARIN NA (PORCINE) 30 MG/0.3 ML DISP.SYRIN SQ SCH (12:49)
--- NOTE | 2017-05-23 12:49 | EKG ---
Test Reason : Blood Pressure : / mmHG Vent. Rate : 066 BPM Atrial Rate : 066 BPM P-R Int : 172 ms QRS Dur : 136 ms QT Int : 468 ms P-R-T Axes : 027 035 124 degrees QTc Int : 490 ms NORMAL SINUS RHYTHM LEFT BUNDLE BRANCH BLOCK ABNORMAL ECG WHEN COMPARED WITH ECG OF 22-FEB-2017 04:52, NO SIGNIFICANT CHANGE WAS FOUND Confirmed by HELENE CAMARA MD ([id number]) on 05/23/2017 12:49:22 PM Referred By: Confirmed By:HELENE CAMARA MD
[2017-05-23] MEDS ORDERED: QUEtiapine FUMARATE 25 MG TABLET (FP) PO SCH (22:00)
[2017-05-23] MEDS ORDERED: ATORVASTATIN CA 20 MG TABLET (FP) PO SCH (22:00)
[2017-05-24] MEDS: METOPROLOL TARTRATE 25 MG TABLET (FP) PO SCH ×2 (00:02→10:04)
[2017-05-24] MEDS: LEVOTHYROXINE NA 88 MCG TABLET (FP) PO SCH (07:53)
[2017-05-24] MEDS ORDERED: amLODIPine BESYLATE 10 MG TABLET (FP) PO SCH (10:00)
[2017-05-24 10:04] VITALS: BP 112/62; PULSE 82; TEMP 98.2
[2017-05-24] MEDS: ENOXAPARIN NA (PORCINE) 30 MG/0.3 ML DISP.SYRIN SQ SCH (10:04)
[2017-05-24] MEDS: PANTOPRAZOLE 40 MG TABLET (FP) PO SCH (10:04)
[2017-05-24] MEDS: ASPIRIN 81 MG CHEWABLE TABLETS PO SCH (10:04)
--- NOTE | 2017-05-24 10:13 | DS ---
Physical Examination Vital Signs: Vital Signs Temperature 98.2 F 05/24/17 10:00 Pulse Rate 82 05/24/17 10:00 Respiratory Rate 82 H 05/24/17 10:00 Blood Pressure 112/62 05/24/17 10:00 O2 Sat by Pulse Oximetry (%) 100 05/23/17 22:00 Findings/Remarks: no further event since admission came in with episode of unresponsiveness and hypertension CT head old infarcts, can not do mri due to shunt cardiac monitoring unremarkable metoprolol dose was slightly increased vitals, neurological status stable since admission eeg will follow as outpt stable to dc home with VNS Constitutional: Yes: Well Nourished Eyes: Yes: Conjunctiva Clear HENT: Yes: Atraumatic, Normocephalic Neck: Yes: Trachea Midline Cardiovascular: Yes: Regular Rate and Rhythm Respiratory: Yes: CTA Bilaterally Gastrointestinal: Yes: Normal Bowel Sounds, Soft Extremities: Yes: WNL Edema: No Peripheral Pulses WNL: Yes Neurological: Yes: WNL, Confusion (at baseline) Labs: CBC, BMP 05/22/17 23:15 05/23/17 08:10 Discharge Summary Reason For Visit: ALTERED MENTAL STATUS,HYPERTENSION Current Active Problems Altered mental status (Acute) Dementia (Acute) Hypertension (Acute) Normal pressure hydrocephalus (Acute) Hospital Course: no further event since admission came in with episode of unresponsiveness and hypertension CT head old infarcts, can not do mri due to shunt cardiac monitoring unremarkable metoprolol dose was slightly increased vitals, neurological status stable since admission eeg will follow as outpt stable to dc home with VNS Condition: Guarded - Instructions Disposition: VNS/HOME HEALTH CARE - Home Medications Comprehensive Discharge Medication List: Ambulatory Orders Aspirin [ASA -] 81 mg PO DAILY 02/22/17 Atorvastatin Ca [Lipitor] 20 mg PO HS 02/22/17 Levothyroxine Sodium [Synthroid] 88 mcg PO DAILY 02/22/17 Pantoprazole Sodium [Protonix -] 40 mg PO DAILY 02/22/17 Quetiapine Fumarate [Seroquel -] 12.5 mg PO HS 02/22/17 Metoprolol Tartrate [Lopressor -] 37.5 mg PO BID tablet 05/24/17
--- NOTE | 2017-05-24 10:37 | PN ---
Progress Note, Physician History of Present Illness: The patient is a 86 year old man with a significant past medical history of HTN , TIA CVA, hypothyroidism, PAD, dementia, hydrocephalus s/p GAMBLING CASHIER shunt who presents to the ED, via EMS, for altered mental status. As per family, the patient was at his mental baseline yesterday morning, ambulating and verbal. Family states the patient took a nap on his couch and the found him not looking quite right. She noticed that his dentures had fallen out of his mouth , and she tried, unsuccessfully to awaken him. EMS was summoned and he was finally roused in the ER. This is apparently the 4th or 5th similar episode over the past year, though during earlier episodes he was pale and diaphoretic. This time he seemed to look relatively normal except for the fact that they couldn't waken him and he was flaccid. The family notes no urinary incontinence , though during one of the earlier episodes this past year he defecated on himself. He has not had any convulsions. He is at baseline mildly demented. He had a shunt placed a few years ago for this and although he improved somewhat after the shunt, he did not return to baseline. His walking was impaired after the shunt and has deteriorated a little recently. Dr. Mathur's Cardiology Consultation reviewed. He has apparently had an extensive workup for this and has known postural hypotension with management as documented in his evaluation report. - Current Medication List Current Medications: Active Medications Aspirin (Asa -) 81 mg PO DAILY [facility] Last Admin: 05/24/17 10:04 Dose: 81 mg Atorvastatin Calcium (Lipitor -) 20 mg PO HS [facility] Last Admin: 05/24/17 00:02 Dose: 20 mg Clonidine (Catapres -) 0.1 mg PO Q1H PRN PRN Reason: HYPERTENSION Enoxaparin Sodium (Lovenox -) 30 mg SQ DAILY [facility] Last Admin: 05/24/17 10:04 Dose: 30 mg Levothyroxine Sodium (Synthroid -) 88 mcg PO DAILY@0700 [facility] Last Admin: 05/24/17 07:53 Dose: 88 mcg Metoprolol Tartrate (Lopressor -) 37.5 mg PO BID [facility] Last Admin: 05/24/17 10:04 Dose: 37.5 mg Pantoprazole Sodium (Protonix -) 40 mg PO DAILY [facility] Last Admin: 05/24/17 10:04 Dose: 40 mg Quetiapine Fumarate (Seroquel -) 12.5 mg PO HS [facility] Last Admin: 05/24/17 00:03 Dose: 12.5 mg - Objective Vital Signs: Vital Signs Temperature 98.2 F 05/24/17 10:00 Pulse Rate 82 05/24/17 10:00 Respiratory Rate 82 H 05/24/17 10:00 Blood Pressure 112/62 05/24/17 10:00 O2 Sat by Pulse Oximetry (%) 100 05/23/17 22:00 Neurological: Yes: Alert, Cran Nerves II-XII Intact, Other (Motor 5/5, no drift) ...Motor Strength: WNL, LUE, LLE, RUE, RLE Labs: CBC, BMP 05/22/17 23:15 05/23/17 08:10 INR, PTT INR 1.06 (0.82-1.09) 05/22/17 23:23 Problem List - Problems (1) Altered mental status Code(s): R41.82 - ALTERED MENTAL STATUS, UNSPECIFIED Qualifiers: Altered mental status type: transient alteration of awareness Qualified Code(s): R40.4 - Transient alteration of awareness (2) Dementia Code(s): F03.90 - UNSPECIFIED DEMENTIA WITHOUT BEHAVIORAL DISTURBANCE Qualifiers: Dementia type: vascular dementia Dementia behavioral disturbance: without behavioral disturbance Qualified Code(s): F01.50 - Vascular dementia without behavioral disturbance (3) Hypertension Code(s): I10 - ESSENTIAL (PRIMARY) HYPERTENSION Qualifiers: Hypertension type: unspecified Qualified Code(s): I10 - Essential (primary ) hypertension (4) Normal pressure hydrocephalus Code(s): G91.2 - (IDIOPATHIC) NORMAL PRESSURE HYDROCEPHALUS (5) Orthostatic hypotension Code(s): I95.1 - ORTHOSTATIC HYPOTENSION Assessment/Plan 4th or 5th episode over last year of unresponsiveness of unclear etiology. Other episodes were accompanied by pale appearance and diaphoresis suggesting hypotension/syncopal nature, though this one didn't seem to be. He had one episode of fecal incontinence though not during this episode. I don't think that this sounds like a TIA, but it may have been cardiovascular syncope, a seizure or possibly both. Sometimes hypoperfusion during a syncopal event can precipitate a seizure. As per cardiology note, he has been extensively evaluated so can hold off on EEG for the time being and management as per cardiology. we can f/u as outpatient.
== END 2017-05-24 14:56 | disposition home health service (06) ==
LOC: JER 22:27 → UNDOADMOB 05-23 00:28 → INTOOBSV 05-23 00:28 → JERBED 05-23 00:28 → J4S 05-23 01:57 → JERBED 05-23 01:57 → J4S 05-23 09:36
PROVIDERS: ADMIT Internal Medicine; ATTEND Internal Medicine
PROC: 3E013GC Introduction of Other Therapeutic Substance into Subcutaneous Tissue, Percutaneous Approach (ICD-10-PCS; principal; 2017-05-23)
DX: I12.9 Hypertensive chronic kidney disease with stage 1 through stage 4 chronic kidney disease, or unspecified chronic kidney disease (principal); F03.90 Unspecified dementia, unspecified severity, without behavioral disturbance, psychotic disturbance, mood disturbance, and anxiety; K21.9 Gastro-esophageal reflux disease without esophagitis; Z86.73 Personal history of transient ischemic attack (TIA), and cerebral infarction without residual deficits; G91.2 (Idiopathic) normal pressure hydrocephalus; I73.9 Peripheral vascular disease, unspecified; N18.9 Chronic kidney disease, unspecified; I70.1 Atherosclerosis of renal artery
CPT/HCPCS: 36415; 70450-TC; 71010-TC; 80053; 81003; 82465; 82550; 83718; 83721; 84443; 84478; 84484; 85025; 85610; 86850; 86900; 86901; 90688; 93005; 93010; 95816; 96372; 97116-GP; 97161-GP; 99285-25; G0378